=== PATIENT | female | born 1955 | race Hispanic/Latino ===

== ENCOUNTER 2020-05-16 10:20 | Inpatient (IN) | payer MEDICARE, OTHER ==
[~2020-05-16] VITALS: Ht 154.9 cm; Wt 136.1 kg
[2020-05-16] VITALS (7 sets, daily range): BP systolic 153–178; BP diastolic 63–89
[2020-05-16 11:37] LABS: ALBUMIN 3.5 g/dL (3.5-5.0); ALBUMIN/GLOBULIN RATIO 0.9 (0.8-2.0); ANION GAP 13.5 mmol/L (8-16); CALCIUM 8.4 mg/dL (8.4-10.2); CREATININE, SERUM 1.02 mg/dL (0.57-1.11); POTASSIUM 4.5 mmol/L (3.5-5.1)
[2020-05-16 11:37] LABS: BASOPHILS % 0.3 % (0.0-1.0); EOSINOPHILS # (AUTO) 0.1 (0.0-0.4); HEMATOCRIT 39.6 % (34.2-44.1); HEMOGLOBIN 12.6 g/dL (12.0-16.0); LYMPHOCYTES # (AUTO) 0.7 (1.0-3.2); LYMPHOCYTES % 10.8 % (18.0-39.1); MEAN CORPUSCULAR HEMOGLOBIN 28.1 pg (28-32); MEAN CORPUSCULAR HGB CONC 31.8 g/dL (31-35); MEAN CORPUSCULAR VOLUME 88.4 fL (81-99); MONOCYTES # (AUTO) 0.6 (0.2-0.8); NEUTROPHILS # (AUTO) 5.5 (2.1-6.9); NEUTROPHILS % 79.6 % (38.7-80.0); PLATELET COUNT 186 x10e3/uL (140-360); RED BLOOD COUNT 4.48 x10e6/uL (3.6-5.1); RED CELL DISTRIBUTION WIDTH 14.4 % (11.7-14.4)
[2020-05-16] MEDS ORDERED: FUROSEMIDE INJ 10 MG/ML 4 ML VIAL IV NR (12:30)
[2020-05-16] MEDS ORDERED: LOSARTAN POTASS25 MG PO (13:09)
[2020-05-16] MEDS ORDERED: CRESTOR5 MG PO (13:09)
[2020-05-16] MEDS ORDERED: FUROSEMIDE40 MG PO (13:09)
[2020-05-16] MEDS ORDERED: PROTONIX20 MG PO (13:09)
[2020-05-16] MEDS ORDERED: VENLAFAXINE HCL75 MG PO (13:09)
[2020-05-16] MEDS ORDERED: METOPROLOL TART50 MG PO (13:09)
[2020-05-16] MEDS ORDERED: LEVETIRACETAM500 MG PO (13:09)
[2020-05-16] MEDS ORDERED: CLOPIDOGREL75 MG PO (13:09)
[2020-05-16] MEDS ORDERED: HYDRALAZINE HCL 20 MG/ML VIAL IV PRN (14:45)
[2020-05-16] MEDS ORDERED: POTASSIUM CHLORIDE 20 MEQ TAB CR PO PRN (14:45)
[2020-05-16] MEDS ORDERED: TRAMADOL HCL 50 MG TAB PO PRN (14:45)
[2020-05-16] MEDS ORDERED: DEXTROSE 50% SYRINGE 50 ML IV PRN ×2 (14:45)
[2020-05-16] MEDS ORDERED: DIPHENHYDRAMINE HCL 25 MG CAP PO PRN (14:45)
[2020-05-16] MEDS ORDERED: BENZONATATE 100 MG CAP PO PRN (14:45)
[2020-05-16] MEDS ORDERED: ALBUTEROL/IPRATROPIUM 3 ML NEB NEB PRN (14:45)
[2020-05-16] MEDS ORDERED: ACETAMINOPHEN 325 MG TAB PO PRN (14:45)
[2020-05-16] MEDS ORDERED: ONDANSETRON HCL INJ 2MG/ML 2ML 2 MG/ML VIAL IV PRN (14:45)
[2020-05-16] MEDS ORDERED: POLYETHYLENE GLYCOL 3350 17 GM PACK PO PRN (14:45)
[2020-05-16] MEDS: FUROSEMIDE INJ 100 MG in SODIUM CHLORIDE 0.9% 100 ML 90 ML IV SCH (15:47)
[2020-05-16] MEDS ORDERED: ENOXAPARIN SOD INJ 40 MG/0.4 ML SYR SC SCH (17:00)
[2020-05-16 20:12] LABS: CREATINE KINASE MB 2.5 ng/mL (0-5.0)
[2020-05-16] MEDS ORDERED: MELATONIN 5 MG TABLET PO PRN (21:00)
[2020-05-17] VITALS (8 sets, daily range): BP systolic 133–166; BP diastolic 62–81
[2020-05-17] MEDS: FUROSEMIDE INJ 100 MG in SODIUM CHLORIDE 0.9% 100 ML 90 ML IV SCH ×3 (01:15→22:19)
[2020-05-17 05:29] LABS: BASOPHILS % 0.3 % (0.0-1.0); EOSINOPHILS # (AUTO) 0.1 (0.0-0.4); EOSINOPHILS % 1.4 % (0.0-6.0); HEMATOCRIT 40.7 % (34.2-44.1); HEMOGLOBIN 12.6 g/dL (12.0-16.0); LYMPHOCYTES # (AUTO) 0.9 (1.0-3.2); LYMPHOCYTES % 14.8 % (18.0-39.1); MEAN CORPUSCULAR HEMOGLOBIN 28.1 pg (28-32); MEAN CORPUSCULAR VOLUME 90.6 fL (81-99); MONOCYTES # (AUTO) 0.6 (0.2-0.8); MONOCYTES % 9.8 % (4.4-11.3); NEUTROPHILS # (AUTO) 4.6 (2.1-6.9); NEUTROPHILS % 73.5 % (38.7-80.0); PLATELET COUNT 101 x10e3/uL (140-360); RED BLOOD COUNT 4.49 x10e6/uL (3.6-5.1); RED CELL DISTRIBUTION WIDTH 14.8 % (11.7-14.4)
[2020-05-17 05:53] LABS: ALBUMIN 3.3 g/dL (3.5-5.0); ALBUMIN/GLOBULIN RATIO 0.8 (0.8-2.0); ANION GAP 17.3 mmol/L (8-16); CALCIUM 8.5 mg/dL (8.4-10.2); CREATININE, SERUM 1.11 mg/dL (0.57-1.11); POTASSIUM 4.3 mmol/L (3.5-5.1)
[2020-05-17 05:54] LABS: MAGNESIUM 1.4 MG/DL (1.3-2.1); PHOSPHORUS 3.8 MG/DL (2.3-4.7)
[2020-05-17 06:14] LABS: CREATINE KINASE MB 1.9 ng/mL (0-5.0)
[2020-05-17 06:17] LABS: THYROID STIMULATING HORMONE 2.341 uIU/mL (0.350-4.940)
[2020-05-17] MEDS: PANTOPRAZOLE SOD 40 MG TABEC PO SCH (08:30)
[2020-05-17 08:35] LABS: EOSINOPHILS % (MANUAL) 1 % (0-7); LYMPHOCYTES % (MANUAL) 9 % (19-48); MONOCYTES % (MANUAL) 7 % (3.4-9.0); NEUTROPHILS % (MANUAL) 83 % (40-74)
[2020-05-17] MEDS: LOSARTAN POTASSIUM 25 MG TAB PO SCH (09:00)
[2020-05-17] MEDS: LEVETIRACETAM 500 MG TAB PO SCH (09:00)
[2020-05-17] MEDS: CLOPIDOGREL BISULFATE 75 MG TAB PO SCH (09:00)
[2020-05-17] MEDS ORDERED: PANTOPRAZOLE SOD 40 MG TABEC PO SCH (09:00)
[2020-05-17] MEDS: VENLAFAXINE HCL 75 MG TAB PO SCH (09:00)
[2020-05-17] MEDS ORDERED: ENOXAPARIN SOD INJ 40 MG/0.4 ML SYR SC SCH (10:30)
[2020-05-17] MEDS ORDERED: CARVEDILOL 12.5 MG TAB PO SCH (17:00)
[2020-05-17] MEDS ORDERED: MAGNESIUM SULFATE 2GM/50ML 50 ML IV ONE (20:30)
[2020-05-17] MEDS ORDERED: LISINOPRIL 10 MG TAB PO SCH (21:00)
[2020-05-17] MEDS ORDERED: ENOXAPARIN 30 MG/0.3 ML SYR SC SCH (21:00)
[2020-05-17] MEDS ORDERED: INSULIN GLARGINE 100 UNITS/ML VIAL SQ SCH (21:00)
[2020-05-17] MEDS: INSULIN LISPRO 100 UNIT/1 ML 3ML VIAL SQ SCH (21:22)
[2020-05-17] MEDS: CARVEDILOL 12.5 MG TAB PO SCH (21:29)
[2020-05-17] MEDS: CRESTOR 10MG PO SCH (21:29)
[2020-05-17] MEDS: BALSAM PERU/CASTOR OIL 60 GM OINT...G. TP SCH (21:31)
[2020-05-18] VITALS (8 sets, daily range): BP systolic 109–164; BP diastolic 44–82
[2020-05-18 05:43] LABS: BASOPHILS % 0.3 % (0.0-1.0); EOSINOPHILS # (AUTO) 0.1 (0.0-0.4); HEMATOCRIT 38.4 % (34.2-44.1); LYMPHOCYTES # (AUTO) 0.9 (1.0-3.2); LYMPHOCYTES % 15.4 % (18.0-39.1); MEAN CORPUSCULAR HEMOGLOBIN 28.1 pg (28-32); MEAN CORPUSCULAR HGB CONC 31.3 g/dL (31-35); MEAN CORPUSCULAR VOLUME 89.9 fL (81-99); MONOCYTES # (AUTO) 0.8 (0.2-0.8); MONOCYTES % 12.7 % (4.4-11.3); NEUTROPHILS # (AUTO) 4.1 (2.1-6.9); NEUTROPHILS % 69.3 % (38.7-80.0); PLATELET COUNT 147 x10e3/uL (140-360); RED BLOOD COUNT 4.27 x10e6/uL (3.6-5.1); RED CELL DISTRIBUTION WIDTH 14.6 % (11.7-14.4)
[2020-05-18 06:07] LABS: ANION GAP 14.6 mmol/L (8-16); BLOOD UREA NITROGEN 16 mg/dL (7-26); BUN/CREATININE RATIO 17 (6-25); CALCIUM 8.2 mg/dL (8.4-10.2); CARBON DIOXIDE 28 mmol/L (22-29); CHLORIDE 99 mmol/L (98-107); CREATININE, SERUM 0.92 mg/dL (0.57-1.11); EST GLOMERULAR FILTRATION RATE > 60 ML/MIN (60-); GLUCOSE 247 mg/dL (74-118); MAGNESIUM 1.6 MG/DL (1.3-2.1); POTASSIUM 3.6 mmol/L (3.5-5.1); SODIUM 138 mmol/L (136-145)
[2020-05-18] MEDS ORDERED: MAGNESIUM SULFATE 2GM/50ML 50 ML IV ONE (08:30)
[2020-05-18] MEDS ORDERED: POTASSIUM CHLORIDE 20 MEQ TAB CR PO ONE (08:40)
[2020-05-18] MEDS: PANTOPRAZOLE SOD 40 MG TABEC PO SCH (08:57)
[2020-05-18] MEDS: ASPIRIN 81 MG ENTERIC COATED PO SCH (08:58)
[2020-05-18] MEDS: INSULIN LISPRO 100 UNIT/1 ML 3ML VIAL SQ SCH ×5 (08:58→20:57)
[2020-05-18] MEDS: CARVEDILOL 12.5 MG TAB PO SCH (08:59)
[2020-05-18] MEDS: VENLAFAXINE HCL 75 MG TAB PO SCH (08:59)
[2020-05-18] MEDS ORDERED: INSULIN GLARGINE 100 UNITS/ML VIAL SQ SCH (09:00)
[2020-05-18] MEDS: LOSARTAN POTASSIUM 25 MG TAB PO SCH (09:00)
[2020-05-18] MEDS: LEVETIRACETAM 500 MG TAB PO SCH (09:00)
[2020-05-18] MEDS: CLOPIDOGREL BISULFATE 75 MG TAB PO SCH (09:00)
[2020-05-18] MEDS: ENOXAPARIN SOD INJ 40 MG/0.4 ML SYR SC SCH ×2 (09:00→20:50)
[2020-05-18] MEDS ORDERED: BALSAM PERU/CASTOR OIL 60 GM OINT...G. TP SCH (09:00)
[2020-05-18] MEDS: FUROSEMIDE INJ 100 MG in SODIUM CHLORIDE 0.9% 100 ML 90 ML IV SCH ×3 (09:06→20:26)
[2020-05-18] MEDS: BALSAM PERU/CASTOR OIL 60 GM OINT...G. TP SCH (20:26)
[2020-05-18] MEDS: CARVEDILOL 3.125 MG TAB PO SCH (20:50)
[2020-05-18] MEDS: CRESTOR 10MG PO SCH (20:50)
[2020-05-18] MEDS: INSULIN GLARGINE 100 UNITS/ML VIAL SQ SCH (20:57)
[2020-05-19] VITALS (8 sets, daily range): BP systolic 106–145; BP diastolic 53–70
[2020-05-19 05:50] LABS: BASOPHILS % 0.4 % (0.0-1.0); EOSINOPHILS # (AUTO) 0.2 (0.0-0.4); HEMATOCRIT 35.3 % (34.2-44.1); HEMOGLOBIN 11.4 g/dL (12.0-16.0); LYMPHOCYTES # (AUTO) 0.9 (1.0-3.2); LYMPHOCYTES % 16.6 % (18.0-39.1); MEAN CORPUSCULAR HEMOGLOBIN 28.6 pg (28-32); MEAN CORPUSCULAR HGB CONC 32.3 g/dL (31-35); MEAN CORPUSCULAR VOLUME 88.7 fL (81-99); MONOCYTES # (AUTO) 0.7 (0.2-0.8); MONOCYTES % 12.2 % (4.4-11.3); NEUTROPHILS # (AUTO) 3.8 (2.1-6.9); NEUTROPHILS % 67.6 % (38.7-80.0); PLATELET COUNT 189 x10e3/uL (140-360); RED BLOOD COUNT 3.98 x10e6/uL (3.6-5.1); RED CELL DISTRIBUTION WIDTH 14.3 % (11.7-14.4)
[2020-05-19 06:15] LABS: ANION GAP 13.5 mmol/L (8-16); CALCIUM 8.1 mg/dL (8.4-10.2); MAGNESIUM 1.6 MG/DL (1.3-2.1); POTASSIUM 3.5 mmol/L (3.5-5.1)
[2020-05-19] MEDS: FUROSEMIDE INJ 100 MG in SODIUM CHLORIDE 0.9% 100 ML 90 ML IV SCH (06:28)
[2020-05-19] MEDS: INSULIN LISPRO 100 UNIT/1 ML 3ML VIAL SQ SCH ×4 (07:30→21:14)
[2020-05-19] MEDS: PANTOPRAZOLE SOD 40 MG TABEC PO SCH (09:15)
[2020-05-19] MEDS: CLOPIDOGREL BISULFATE 75 MG TAB PO SCH (09:15)
[2020-05-19] MEDS: ASPIRIN 81 MG ENTERIC COATED PO SCH (09:15)
[2020-05-19] MEDS: ENOXAPARIN SOD INJ 40 MG/0.4 ML SYR SC SCH ×2 (09:15→21:08)
[2020-05-19] MEDS: LEVETIRACETAM 500 MG TAB PO SCH (09:15)
[2020-05-19] MEDS: VENLAFAXINE HCL 75 MG TAB PO SCH (09:15)
[2020-05-19] MEDS: LOSARTAN POTASSIUM 25 MG TAB PO SCH (09:18)
[2020-05-19] MEDS: CARVEDILOL 3.125 MG TAB PO SCH ×2 (09:18→21:08)
[2020-05-19] MEDS ORDERED: MAGNESIUM SULFATE 2GM/50ML 50 ML IV ONE (09:30)
[2020-05-19] MEDS ORDERED: ONDANSETRON HCL 4 MG ORAL DISINTEGRATING TAB PO PRN (09:45)
[2020-05-19] MEDS ORDERED: POTASSIUM CHLORIDE 10MEQ EA PO ONE (09:50)
[2020-05-19] MEDS: INSULIN GLARGINE 100 UNITS/ML VIAL SQ SCH ×2 (09:56→21:14)
[2020-05-19] MEDS: CRESTOR 10MG PO SCH (21:08)
[2020-05-19] MEDS: FUROSEMIDE INJ 10 MG/ML 4 ML VIAL IV SCH (21:08)
[2020-05-19] MEDS: BALSAM PERU/CASTOR OIL 60 GM OINT...G. TP SCH (21:09)
[2020-05-20] VITALS (8 sets, daily range): BP systolic 119–144; BP diastolic 62–77
[2020-05-20 05:35] LABS: BASOPHILS % 0.4 % (0.0-1.0); EOSINOPHILS # (AUTO) 0.2 (0.0-0.4); EOSINOPHILS % 3.1 % (0.0-6.0); HEMATOCRIT 36.4 % (34.2-44.1); HEMOGLOBIN 11.5 g/dL (12.0-16.0); LYMPHOCYTES # (AUTO) 1.1 (1.0-3.2); LYMPHOCYTES % 20.1 % (18.0-39.1); MEAN CORPUSCULAR HEMOGLOBIN 27.8 pg (28-32); MEAN CORPUSCULAR HGB CONC 31.6 g/dL (31-35); MEAN CORPUSCULAR VOLUME 87.9 fL (81-99); MONOCYTES # (AUTO) 0.6 (0.2-0.8); MONOCYTES % 11.6 % (4.4-11.3); NEUTROPHILS # (AUTO) 3.6 (2.1-6.9); NEUTROPHILS % 64.6 % (38.7-80.0); PLATELET COUNT 205 x10e3/uL (140-360); RED BLOOD COUNT 4.14 x10e6/uL (3.6-5.1); RED CELL DISTRIBUTION WIDTH 14.6 % (11.7-14.4)
[2020-05-20 05:59] LABS: ANION GAP 13.8 mmol/L (8-16); CALCIUM 8.4 mg/dL (8.4-10.2); MAGNESIUM 1.9 MG/DL (1.3-2.1); POTASSIUM 3.8 mmol/L (3.5-5.1)
[2020-05-20] MEDS: INSULIN LISPRO 100 UNIT/1 ML 3ML VIAL SQ SCH ×4 (07:30→20:33)
[2020-05-20] MEDS: INSULIN GLARGINE 100 UNITS/ML VIAL SQ SCH ×2 (09:00→20:33)
[2020-05-20] MEDS ORDERED: POTASSIUM CHLORIDE 20 MEQ TAB CR PO STA (09:00)
[2020-05-20] MEDS: ASPIRIN 81 MG ENTERIC COATED PO SCH (09:09)
[2020-05-20] MEDS: FUROSEMIDE INJ 10 MG/ML 4 ML VIAL IV SCH ×2 (09:09→20:32)
[2020-05-20] MEDS: PANTOPRAZOLE SOD 40 MG TABEC PO SCH (09:09)
[2020-05-20] MEDS: LOSARTAN POTASSIUM 25 MG TAB PO SCH (09:10)
[2020-05-20] MEDS: VENLAFAXINE HCL 75 MG TAB PO SCH (09:10)
[2020-05-20] MEDS: CARVEDILOL 3.125 MG TAB PO SCH ×2 (09:10→20:32)
[2020-05-20] MEDS: CLOPIDOGREL BISULFATE 75 MG TAB PO SCH (09:11)
[2020-05-20] MEDS: ENOXAPARIN SOD INJ 40 MG/0.4 ML SYR SC SCH ×2 (09:11→20:32)
[2020-05-20] MEDS: LEVETIRACETAM 500 MG TAB PO SCH (09:11)
[2020-05-20] MEDS: CRESTOR 10MG PO SCH (20:32)
[2020-05-20] MEDS: BALSAM PERU/CASTOR OIL 60 GM OINT...G. TP SCH (20:33)
[2020-05-21 00:48] VITALS: BP 136/75
[2020-05-21 04:07] VITALS: BP 121/67
[2020-05-21 06:23] LABS: BASOPHILS % 0.3 % (0.0-1.0); EOSINOPHILS # (AUTO) 0.2 (0.0-0.4); EOSINOPHILS % 2.4 % (0.0-6.0); HEMOGLOBIN 11.8 g/dL (12.0-16.0); LYMPHOCYTES # (AUTO) 0.9 (1.0-3.2); LYMPHOCYTES % 14.9 % (18.0-39.1); MEAN CORPUSCULAR HGB CONC 31.9 g/dL (31-35); MEAN CORPUSCULAR VOLUME 87.7 fL (81-99); MONOCYTES # (AUTO) 0.8 (0.2-0.8); MONOCYTES % 12.3 % (4.4-11.3); NEUTROPHILS # (AUTO) 4.4 (2.1-6.9); NEUTROPHILS % 69.8 % (38.7-80.0); PLATELET COUNT 204 x10e3/uL (140-360); RED BLOOD COUNT 4.22 x10e6/uL (3.6-5.1); RED CELL DISTRIBUTION WIDTH 14.4 % (11.7-14.4)
[2020-05-21 07:11] LABS: ANION GAP 11.6 mmol/L (8-16); CALCIUM 8.5 mg/dL (8.4-10.2); CREATININE, SERUM 0.95 mg/dL (0.57-1.11); MAGNESIUM 1.8 MG/DL (1.3-2.1); POTASSIUM 3.6 mmol/L (3.5-5.1)
[2020-05-21] MEDS: INSULIN LISPRO 100 UNIT/1 ML 3ML VIAL SQ SCH ×3 (07:30→16:30)
[2020-05-21] MEDS: INSULIN GLARGINE 100 UNITS/ML VIAL SQ SCH (08:46)
[2020-05-21] MEDS: ASPIRIN 81 MG ENTERIC COATED PO SCH (08:47)
[2020-05-21] MEDS: PANTOPRAZOLE SOD 40 MG TABEC PO SCH (08:47)
[2020-05-21] MEDS: FUROSEMIDE INJ 10 MG/ML 4 ML VIAL IV SCH (08:47)
[2020-05-21] MEDS: ENOXAPARIN SOD INJ 40 MG/0.4 ML SYR SC SCH (08:48)
[2020-05-21] MEDS: CLOPIDOGREL BISULFATE 75 MG TAB PO SCH (08:48)
[2020-05-21] MEDS: CARVEDILOL 3.125 MG TAB PO SCH (08:48)
[2020-05-21] MEDS: LEVETIRACETAM 500 MG TAB PO SCH (08:48)
[2020-05-21] MEDS: LOSARTAN POTASSIUM 25 MG TAB PO SCH (08:48)
[2020-05-21] MEDS: VENLAFAXINE HCL 75 MG TAB PO SCH (08:48)
[2020-05-21 08:56] VITALS: BP 134/75
[2020-05-21 09:34] VITALS: BP 134/75
[2020-05-21 12:01] VITALS: BP 148/60
[2020-05-21] MEDS ORDERED: COREG3.125 MG PO (14:18)
[2020-05-21] MEDS ORDERED: FUROSEMIDE40 MG PO (14:18)
[2020-05-21] MEDS ORDERED: ASPIRIN81 MG PO (14:18)
[2020-05-21] MEDS ORDERED: LOSARTAN POTASS25 MG PO (14:18)
[2020-05-21 16:06] VITALS: BP 163/93
== END 2020-05-21 17:45 | disposition home or self-care (01) | DRG 292 ==
LOC: ER 11:22 → ERHOLD 12:27 → MED/SURG 14:13 → OBSVTOIN 05-17 15:48
PROVIDERS: ADMIT Internal Medicine; ATTEND Internal Medicine
DX: I11.0 Hypertensive heart disease with heart failure (principal); Z68.44 Body mass index [BMI] 60.0-69.9, adult; I50.33 Acute on chronic diastolic (congestive) heart failure; D69.6 Thrombocytopenia, unspecified; E11.65 Type 2 diabetes mellitus with hyperglycemia; Z85.038 Personal history of other malignant neoplasm of large intestine; I25.2 Old myocardial infarction; Z90.49 Acquired absence of other specified parts of digestive tract; Z98.61 Coronary angioplasty status; Z88.8 Allergy status to other drugs, medicaments and biological substances; E66.01 Morbid (severe) obesity due to excess calories; Z91.19 Patient's noncompliance with other medical treatment and regimen; G40.909 Epilepsy, unspecified, not intractable, without status epilepticus; Z20.822 Contact with and (suspected) exposure to COVID-19; I25.10 Atherosclerotic heart disease of native coronary artery without angina pectoris; E78.5 Hyperlipidemia, unspecified; Z79.4 Long term (current) use of insulin
CPT/HCPCS: 36415; 71045; 80048; 80053; 82550; 82553; 82948; 83036; 83735; 83880; 84100; 84443; 84484; 85025; 93005; 93306; 93970; 94660; 96372; 97139; 99251; 99284; G0378; J1650; J1815; J1940; J3475; U0002

== ENCOUNTER 2020-06-04 22:35 | Inpatient (IN) | payer MEDICARE ==
[~2020-06-04] VITALS: Ht 154.9 cm; Wt 131.7 kg
[~2020-06-04 22:35] MED LIST: ASPIRIN81 MG PO; CLOPIDOGREL75 MG PO; COREG3.125 MG PO; CRESTOR5 MG PO; FUROSEMIDE40 MG PO; LEVETIRACETAM500 MG PO; LOSARTAN POTASS25 MG PO; METOPROLOL TART50 MG PO; PROTONIX20 MG PO; VENLAFAXINE HCL75 MG PO
[2020-06-04] MEDS ORDERED: ASPIRIN 81 MG CHEW TAB PO ONE (22:45)
[2020-06-04] MEDS ORDERED: NALOXONE HCL INJ 0.4 MG/ML AMP IV PRN (23:15)
[2020-06-04] MEDS ORDERED: NALOXONE HCL INJ 0.4 MG/ML AMP ONE ×2 (23:35→23:43)
[2020-06-05] VITALS (20 sets, daily range): BP systolic 80–127; BP diastolic 37–95
[2020-06-05] MEDS ORDERED: ASPIRIN 81 MG CHEW TAB PO ONE (02:00)
[2020-06-05] MEDS ORDERED: IBUPROFEN 600 MG TAB PO STA (03:24)
[2020-06-05 03:32] LABS: BASOPHILS # (AUTO) 0.1 (0.0-0.1); BASOPHILS % 0.5 % (0.0-1.0); EOSINOPHILS # (AUTO) 0.1 (0.0-0.4); EOSINOPHILS % 0.3 % (0.0-6.0); HEMATOCRIT 35.7 % (34.2-44.1); HEMOGLOBIN 11.5 g/dL (12.0-16.0); LYMPHOCYTES # (AUTO) 0.4 (1.0-3.2); LYMPHOCYTES % 1.8 % (18.0-39.1); MEAN CORPUSCULAR HEMOGLOBIN 27.6 pg (28-32); MEAN CORPUSCULAR HGB CONC 32.2 g/dL (31-35); MEAN CORPUSCULAR VOLUME 85.8 fL (81-99); MONOCYTES # (AUTO) 0.6 (0.2-0.8); NEUTROPHILS # (AUTO) 19.7 (2.1-6.9); PLATELET COUNT 283 x10e3/uL (140-360); RED BLOOD COUNT 4.16 x10e6/uL (3.6-5.1); RED CELL DISTRIBUTION WIDTH 15.9 % (11.7-14.4)
[2020-06-05] MEDS ORDERED: CEFTRIAXONE SOD 1 GM VIAL ONE (03:47)
[2020-06-05 03:51] LABS: ALBUMIN 2.3 g/dL (3.5-5.0); ALBUMIN/GLOBULIN RATIO 0.5 (0.8-2.0); ANION GAP 23.2 mmol/L (8-16); CALCIUM 8.7 mg/dL (8.4-10.2); CREATININE, SERUM 5.18 mg/dL (0.57-1.11); POTASSIUM 4.2 mmol/L (3.5-5.1)
[2020-06-05 03:56] LABS: AMPHETAMINES SCREEN,URINE NEGATIVE (NEGATIVE); BENZODIAZEPINES SCREEN,URINE NEGATIVE (NEGATIVE); CLARITY,URINE CLOUDY (CLEAR); COLOR,URINE AMBER (YELLOW); PHENCYCLIDINE SCREEN,URINE NEGATIVE (NEGATIVE)
[2020-06-05 03:57] LABS: KETONES,URINE TRACE (NEGATIVE); LEUKOCYTE ESTERASE ,URINE 2+ (NEGATIVE); NITRITE,URINE NEGATIVE (NEGATIVE); PROTEIN,URINE DIPSTICK 3+ (NEGATIVE); URINE UROBILINOGEN 2 mg/dL (0.2 - 1); WBC,URINE (MAN) >50 /HPF (0-5)
[2020-06-05 03:58] LABS: BACTERIA,URINE MANY /HPF; EPITHELIAL CELLS,URINE FEW /LPF
[2020-06-05] MEDS ORDERED: CEFTRIAXONE SOD 1 GM/50 ML BAG IV ONE (04:00)
[2020-06-05] MEDS ORDERED: SODIUM CHLORIDE 0.9% 500ML 500 ML IV ONE ×2 (04:15→05:15)
[2020-06-05] MEDS ORDERED: CEFTRIAXONE SOD 1 GM in SODIUM CHLORIDE 0.9% 50ML 50 ML IV ONE (04:15)
[2020-06-05] MEDS ORDERED: SODIUM CHLORIDE 0.9% 500ML 500 ML ONE (04:16)
[2020-06-05] MEDS ORDERED: SODIUM BICARBONATE 8.4% INJ 50 ML SYR IV STA (04:39)
[2020-06-05] MEDS ORDERED: FUROSEMIDE INJ 10 MG/ML 4 ML VIAL IV ONE (05:15)
[2020-06-05] MEDS ORDERED: VANCOMYCIN 1GM/NS 250 ML 250 ML IV ONE (06:30)
[2020-06-05 06:32] LABS: CREATINE KINASE MB 7.4 ng/mL (0-5.0)
[2020-06-05] MEDS ORDERED: SODIUM CHLORIDE 0.9% 1000ML 1,000 ML IV STA (06:43)
[2020-06-05 06:44] LABS: ANISOCYTOSIS SLIGHT; BAND NEUTROPHILS % (MANUAL) 3 %; LYMPHOCYTES % (MANUAL) 2 % (19-48); MONOCYTES % (MANUAL) 6 % (3.4-9.0); NEUTROPHILS % (MANUAL) 89 % (40-74); PLATELET ESTIMATE ADEQUATE
[2020-06-05 06:45] LABS: PLATELET MORPHOLOGY COMMENT RARE EDTA CLUMPING; RBC MORPHOLOGY COMMENT NORMAL
[2020-06-05] MEDS ORDERED: NOREPINEPHRINE INJ 4MG/4ML 8 MG in DEXTROSE 5% 250ML 250 ML IV STA (07:05)
[2020-06-05] MEDS ORDERED: NOREPINEPHRINE 8 MG/D5W 250 ML 250 ML ONE (08:31)
[2020-06-05] MEDS: PIPERACILLIN/TAZOBAC 3.375 GM in SODIUM CHLORIDE 0.9% 50ML 50 ML IV SCH ×2 (08:35→19:25)
[2020-06-05] MEDS: LEVETIRACETAM 500 MG TAB PO SCH (10:30)
[2020-06-05] MEDS: CLOPIDOGREL BISULFATE 75 MG TAB PO SCH (10:30)
[2020-06-05 11:09] LABS: CREATINE KINASE MB 6.4 ng/mL (0-5.0)
[2020-06-05 11:28] LABS: INR 1.19; PROTHROMBIN TIME 15.8 seconds (11.9-14.5)
[2020-06-05 11:29] LABS: PARTIAL THROMBOPLASTIN TIME 42.1 seconds (23.8-35.5)
[2020-06-05] MEDS ORDERED: SODIUM CHLORIDE 0.9% 1000ML 1,000 ML IV ONE (11:35)
[2020-06-05] MEDS: SODIUM BICARBONATE 8.4% SYRING 150 ML in DEXTROSE 5% 1,000 ML IV SCH (11:45)
[2020-06-05] MEDS: INSULIN REGULAR, HUMAN 100 UNIT/1 ML 3ML VIAL SQ SCH ×2 (16:30→20:24)
[2020-06-05] MEDS ORDERED: DEXTROSE 50% SYRINGE 50 ML IV PRN (16:30)
[2020-06-05] MEDS: CARVEDILOL 3.125 MG TAB PO SCH (17:00)
[2020-06-05] MEDS ORDERED: HEPARIN SOD (PORCINE) 1000 UNIT/ML SDV IV PRN (17:45)
[2020-06-05] MEDS ORDERED: SODIUM CHLORIDE 0.9% 1000ML 2,000 ML IV PRN (17:45)
[2020-06-05] MEDS ORDERED: ALBUMIN 25% 12.5GM 0.25 GM/ML BTL IV PRN (17:45)
[2020-06-05] MEDS ORDERED: SODIUM CHLORIDE 0.9% 250ML 500 ML IV PRN (17:45)
[2020-06-05 17:54] LABS: CREATINE KINASE MB 5.4 ng/mL (0-5.0)
[2020-06-05] MEDS ORDERED: PIPERACILLIN/TAZOBAC 3.375 GM VIAL ONE (19:27)
[2020-06-05] MEDS ORDERED: SODIUM CHLORIDE 0.9% 50ML 50 ML ONE (19:28)
[2020-06-05] MEDS: HEPARIN SOD (PORCINE) 5,000 UNIT/ML VIAL SC SCH (20:18)
[2020-06-06] VITALS (29 sets, daily range): BP systolic 92–137; BP diastolic 40–98
[2020-06-06] MEDS: SODIUM BICARBONATE 8.4% SYRING 150 ML in DEXTROSE 5% 1,000 ML IV SCH ×3 (00:58→22:55)
[2020-06-06 04:51] LABS: BASOPHILS # (AUTO) 0.1 (0.0-0.1); BASOPHILS % 0.6 % (0.0-1.0); EOSINOPHILS # (AUTO) 0.1 (0.0-0.4); EOSINOPHILS % 0.2 % (0.0-6.0); HEMATOCRIT 31.3 % (34.2-44.1); HEMOGLOBIN 10.2 g/dL (12.0-16.0); LYMPHOCYTES # (AUTO) 0.6 (1.0-3.2); MEAN CORPUSCULAR HEMOGLOBIN 27.2 pg (28-32); MEAN CORPUSCULAR HGB CONC 32.6 g/dL (31-35); MEAN CORPUSCULAR VOLUME 83.5 fL (81-99); MONOCYTES # (AUTO) 0.8 (0.2-0.8); MONOCYTES % 3.9 % (4.4-11.3); NEUTROPHILS # (AUTO) 19.6 (2.1-6.9); NEUTROPHILS % 91.2 % (38.7-80.0); PLATELET COUNT 230 x10e3/uL (140-360); RED BLOOD COUNT 3.75 x10e6/uL (3.6-5.1); RED CELL DISTRIBUTION WIDTH 15.9 % (11.7-14.4)
[2020-06-06 05:15] LABS: ALBUMIN 1.9 g/dL (3.5-5.0); ALBUMIN/GLOBULIN RATIO 0.4 (0.8-2.0); ANION GAP 17.2 mmol/L (8-16); CALCIUM 8.2 mg/dL (8.4-10.2); CREATININE, SERUM 4.43 mg/dL (0.57-1.11); POTASSIUM 4.2 mmol/L (3.5-5.1)
[2020-06-06] MEDS ORDERED: NOREPINEPHRINE 8 MG/D5W 250 ML 250 ML IV PRN (05:45)
[2020-06-06] MEDS ORDERED: NOREPINEPHRINE 8 MG/D5W 250 ML 250 ML ONE (05:54)
[2020-06-06] MEDS: PIPERACILLIN/TAZOBAC 3.375 GM in SODIUM CHLORIDE 0.9% 50ML 50 ML IV SCH ×2 (06:30→18:01)
[2020-06-06] MEDS ORDERED: PIPERACILLIN/TAZOBAC 3.375 GM VIAL ONE ×2 (06:33→16:57)
[2020-06-06] MEDS ORDERED: SODIUM CHLORIDE 0.9% 50ML 50 ML ONE (06:34)
[2020-06-06] MEDS: INSULIN REGULAR, HUMAN 100 UNIT/1 ML 3ML VIAL SQ SCH ×4 (07:30→20:34)
[2020-06-06 08:41] LABS: EOSINOPHILS % (MANUAL) 1 % (0-7); LYMPHOCYTES % (MANUAL) 3 % (19-48); MONOCYTES % (MANUAL) 3 % (3.4-9.0); NEUTROPHILS % (MANUAL) 91 % (40-74)
[2020-06-06 08:45] LABS: SMUDGE CELLS FEW
[2020-06-06] MEDS: CARVEDILOL 3.125 MG TAB PO SCH (09:00)
[2020-06-06] MEDS: CLOPIDOGREL BISULFATE 75 MG TAB PO SCH (09:00)
[2020-06-06] MEDS: HEPARIN SOD (PORCINE) 5,000 UNIT/ML VIAL SC SCH ×2 (09:00→20:34)
[2020-06-06] MEDS: LEVETIRACETAM 500 MG TAB PO SCH (09:00)
[2020-06-06] MEDS ORDERED: MANNITOL 25% 12.5GM/50ML 50 ML ONE (10:14)
[2020-06-06] MEDS ORDERED: SODIUM CHLORIDE 0.9% 1000ML 2,000 ML ONE (10:14)
[2020-06-06] MEDS ORDERED: HEPARIN SOD (PORCINE) 1000 UNIT/ML SDV ONE (10:16)
[2020-06-06] MEDS ORDERED: PANTOPRAZOLE SOD 40 MG TABEC PO SCH (10:30)
[2020-06-06] MEDS ORDERED: FUROSEMIDE INJ 400 MG in MANNITOL 20% 500ML 500 ML IV SCH ×2 (10:45→16:15)
[2020-06-06] MEDS ORDERED: LEVETIRACETAM 500MG/5ML VIAL 500 MG in SODIUM CHLORIDE 0.9% 100 ML 100 ML IV SCH (15:00)
[2020-06-06] MEDS: LEVETIRACETAM 500MG/5ML VIAL 500 MG in SODIUM CHLORIDE 0.9% 100 ML 100 ML IV SCH (18:07)
[2020-06-06] MEDS ORDERED: VANCOMYCIN 1GM/NS 250 ML 250 ML IV ONE (19:30)
[2020-06-07] VITALS (24 sets, daily range): BP systolic 100–146; BP diastolic 29–93
[2020-06-07 04:27] LABS: BASOPHILS % 0.2 % (0.0-1.0); EOSINOPHILS # (AUTO) 0.1 (0.0-0.4); EOSINOPHILS % 0.3 % (0.0-6.0); HEMOGLOBIN 9.5 g/dL (12.0-16.0); LYMPHOCYTES # (AUTO) 0.7 (1.0-3.2); LYMPHOCYTES % 3.8 % (18.0-39.1); MEAN CORPUSCULAR HEMOGLOBIN 27.6 pg (28-32); MEAN CORPUSCULAR HGB CONC 32.8 g/dL (31-35); MEAN CORPUSCULAR VOLUME 84.3 fL (81-99); MONOCYTES # (AUTO) 0.7 (0.2-0.8); MONOCYTES % 3.9 % (4.4-11.3); NEUTROPHILS # (AUTO) 16.4 (2.1-6.9); NEUTROPHILS % 90.9 % (38.7-80.0); PLATELET COUNT 187 x10e3/uL (140-360); RED BLOOD COUNT 3.44 x10e6/uL (3.6-5.1); RED CELL DISTRIBUTION WIDTH 15.9 % (11.7-14.4)
[2020-06-07 04:45] LABS: ALBUMIN 1.8 g/dL (3.5-5.0); ALBUMIN/GLOBULIN RATIO 0.4 (0.8-2.0); CREATININE, SERUM 3.37 mg/dL (0.57-1.11)
[2020-06-07] MEDS ORDERED: PIPERACILLIN/TAZOBAC 3.375 GM VIAL ONE (05:18)
[2020-06-07] MEDS: LEVETIRACETAM 500MG/5ML VIAL 500 MG in SODIUM CHLORIDE 0.9% 100 ML 100 ML IV SCH ×2 (05:55→17:22)
[2020-06-07] MEDS: PIPERACILLIN/TAZOBAC 3.375 GM in SODIUM CHLORIDE 0.9% 50ML 50 ML IV SCH (06:36)
[2020-06-07 07:34] LABS: ANISOCYTOSIS SLIGHT; LYMPHOCYTES % (MANUAL) 5 % (19-48); MONOCYTES % (MANUAL) 3 % (3.4-9.0); NEUTROPHILS % (MANUAL) 90 % (40-74); PLATELET ESTIMATE ADEQUATE
[2020-06-07 07:35] LABS: PLATELET MORPHOLOGY COMMENT FEW LARGE; RBC MORPHOLOGY COMMENT NORMAL
[2020-06-07] MEDS: CLOPIDOGREL BISULFATE 75 MG TAB PO SCH (08:17)
[2020-06-07] MEDS: CARVEDILOL 3.125 MG TAB PO SCH (08:17)
[2020-06-07] MEDS: PANTOPRAZOLE 40 MG 10ML VIAL IV SCH (08:26)
[2020-06-07] MEDS: INSULIN REGULAR, HUMAN 100 UNIT/1 ML 3ML VIAL SQ SCH ×4 (08:28→20:47)
[2020-06-07] MEDS: HEPARIN SOD (PORCINE) 5,000 UNIT/ML VIAL SC SCH ×2 (08:28→20:47)
[2020-06-07] MEDS: FUROSEMIDE INJ 400 MG in MANNITOL 20% 500ML 500 ML IV SCH (16:34)
[2020-06-07] MEDS: PIPERACILLIN/TAZOBACTAM 2.25 GM in SODIUM CHLORIDE 0.9% 50ML 50 ML IV SCH (18:04)
[2020-06-08] VITALS (24 sets, daily range): BP systolic 93–181; BP diastolic 49–97
[2020-06-08] MEDS: PIPERACILLIN/TAZOBACTAM 2.25 GM in SODIUM CHLORIDE 0.9% 50ML 50 ML IV SCH ×4 (00:24→17:43)
[2020-06-08] MEDS: LEVETIRACETAM 500MG/5ML VIAL 500 MG in SODIUM CHLORIDE 0.9% 100 ML 100 ML IV SCH ×2 (05:49→17:52)
[2020-06-08 05:58] LABS: BASOPHILS % 0.2 % (0.0-1.0); EOSINOPHILS % 0.1 % (0.0-6.0); HEMATOCRIT 31.8 % (34.2-44.1); HEMOGLOBIN 10.1 g/dL (12.0-16.0); LYMPHOCYTES # (AUTO) 0.7 (1.0-3.2); LYMPHOCYTES % 3.1 % (18.0-39.1); MEAN CORPUSCULAR HEMOGLOBIN 27.1 pg (28-32); MEAN CORPUSCULAR HGB CONC 31.8 g/dL (31-35); MEAN CORPUSCULAR VOLUME 85.3 fL (81-99); MONOCYTES # (AUTO) 0.7 (0.2-0.8); MONOCYTES % 3.1 % (4.4-11.3); NEUTROPHILS # (AUTO) 20.6 (2.1-6.9); NEUTROPHILS % 92.5 % (38.7-80.0); PLATELET COUNT 171 x10e3/uL (140-360); RED BLOOD COUNT 3.73 x10e6/uL (3.6-5.1)
[2020-06-08 06:25] LABS: ALBUMIN 1.9 g/dL (3.5-5.0); ALBUMIN/GLOBULIN RATIO 0.4 (0.8-2.0); ANION GAP 14.8 mmol/L (8-16); CALCIUM 8.7 mg/dL (8.4-10.2); CREATININE, SERUM 2.56 mg/dL (0.57-1.11); POTASSIUM 3.8 mmol/L (3.5-5.1)
[2020-06-08] MEDS: INSULIN REGULAR, HUMAN 100 UNIT/1 ML 3ML VIAL SQ SCH ×4 (07:52→21:24)
[2020-06-08] MEDS: CLOPIDOGREL BISULFATE 75 MG TAB PO SCH (08:16)
[2020-06-08] MEDS: CARVEDILOL 3.125 MG TAB PO SCH (08:16)
[2020-06-08] MEDS: PANTOPRAZOLE 40 MG 10ML VIAL IV SCH (08:25)
[2020-06-08] MEDS: HEPARIN SOD (PORCINE) 5,000 UNIT/ML VIAL SC SCH ×2 (08:27→21:24)
[2020-06-08] MEDS: FUROSEMIDE INJ 400 MG in MANNITOL 20% 500ML 500 ML IV SCH (13:00)
[2020-06-08] MEDS: FUROSEMIDE INJ 10 MG/ML 4 ML VIAL IV SCH (21:23)
[2020-06-09] VITALS (14 sets, daily range): BP systolic 125–152; BP diastolic 50–92
[2020-06-09] MEDS: PIPERACILLIN/TAZOBACTAM 2.25 GM in SODIUM CHLORIDE 0.9% 50ML 50 ML IV SCH ×5 (05:21→17:26)
[2020-06-09] MEDS: LEVETIRACETAM 500MG/5ML VIAL 500 MG in SODIUM CHLORIDE 0.9% 100 ML 100 ML IV SCH ×2 (06:15→17:03)
[2020-06-09 07:18] LABS: ALBUMIN/GLOBULIN RATIO 0.4 (0.8-2.0); ANION GAP 17.4 mmol/L (8-16); CALCIUM 8.6 mg/dL (8.4-10.2); CREATININE, SERUM 2.56 mg/dL (0.57-1.11); POTASSIUM 3.4 mmol/L (3.5-5.1)
[2020-06-09] MEDS: INSULIN REGULAR, HUMAN 100 UNIT/1 ML 3ML VIAL SQ SCH ×4 (07:40→21:45)
[2020-06-09] MEDS: PANTOPRAZOLE 40 MG 10ML VIAL IV SCH (08:18)
[2020-06-09] MEDS: FUROSEMIDE INJ 10 MG/ML 4 ML VIAL IV SCH (08:18)
[2020-06-09] MEDS: CARVEDILOL 3.125 MG TAB PO SCH (08:21)
[2020-06-09] MEDS: CLOPIDOGREL BISULFATE 75 MG TAB PO SCH (08:21)
[2020-06-09] MEDS: HEPARIN SOD (PORCINE) 5,000 UNIT/ML VIAL SC SCH ×2 (08:22→21:45)
[2020-06-09] MEDS ORDERED: POTASSIUM CHLORIDE 20MEQ/100ML 100 ML IV ONE (09:45)
[2020-06-10] VITALS (20 sets, daily range): BP systolic 134–157; BP diastolic 60–110
[2020-06-10] MEDS: PIPERACILLIN/TAZOBACTAM 2.25 GM in SODIUM CHLORIDE 0.9% 50ML 50 ML IV SCH ×5 (00:12→23:15)
[2020-06-10 05:53] LABS: BASOPHILS % 0.2 % (0.0-1.0); EOSINOPHILS # (AUTO) 0.1 (0.0-0.4); EOSINOPHILS % 0.6 % (0.0-6.0); HEMATOCRIT 32.2 % (34.2-44.1); HEMOGLOBIN 10.3 g/dL (12.0-16.0); LYMPHOCYTES % 5.6 % (18.0-39.1); MEAN CORPUSCULAR VOLUME 84.5 fL (81-99); MONOCYTES # (AUTO) 0.8 (0.2-0.8); MONOCYTES % 4.5 % (4.4-11.3); NEUTROPHILS # (AUTO) 15.2 (2.1-6.9); NEUTROPHILS % 88.2 % (38.7-80.0); PLATELET COUNT 165 x10e3/uL (140-360); RED BLOOD COUNT 3.81 x10e6/uL (3.6-5.1); RED CELL DISTRIBUTION WIDTH 16.2 % (11.7-14.4)
[2020-06-10] MEDS: LEVETIRACETAM 500MG/5ML VIAL 500 MG in SODIUM CHLORIDE 0.9% 100 ML 100 ML IV SCH ×2 (06:04→17:21)
[2020-06-10 06:14] LABS: ALBUMIN/GLOBULIN RATIO 0.4 (0.8-2.0); ANION GAP 18.2 mmol/L (8-16); CALCIUM 8.2 mg/dL (8.4-10.2); CREATININE, SERUM 2.21 mg/dL (0.57-1.11); POTASSIUM 3.2 mmol/L (3.5-5.1)
[2020-06-10] MEDS: PANTOPRAZOLE 40 MG 10ML VIAL IV SCH (08:13)
[2020-06-10] MEDS: INSULIN REGULAR, HUMAN 100 UNIT/1 ML 3ML VIAL SQ SCH ×4 (08:13→20:19)
[2020-06-10] MEDS: HEPARIN SOD (PORCINE) 5,000 UNIT/ML VIAL SC SCH ×2 (08:14→20:18)
[2020-06-10] MEDS: CLOPIDOGREL BISULFATE 75 MG TAB PO SCH (08:14)
[2020-06-10] MEDS: CARVEDILOL 3.125 MG TAB PO SCH (08:14)
[2020-06-10] MEDS ORDERED: POTASSIUM CHLORIDE 10MEQ EA PO NR (09:30)
[2020-06-10] MEDS: FUROSEMIDE INJ 10 MG/ML 2 ML VIAL IV SCH (17:20)
[2020-06-10] MEDS ORDERED: INSULIN GLARGINE 100 UNITS/ML VIAL SQ SCH (21:00)
[2020-06-11] VITALS (16 sets, daily range): BP systolic 115–159; BP diastolic 51–86
[2020-06-11 03:40] LABS: BASOPHILS % 0.2 % (0.0-1.0); EOSINOPHILS # (AUTO) 0.1 (0.0-0.4); EOSINOPHILS % 0.8 % (0.0-6.0); HEMATOCRIT 32.7 % (34.2-44.1); HEMOGLOBIN 10.6 g/dL (12.0-16.0); LYMPHOCYTES % 7.9 % (18.0-39.1); MEAN CORPUSCULAR HEMOGLOBIN 27.4 pg (28-32); MEAN CORPUSCULAR HGB CONC 32.4 g/dL (31-35); MEAN CORPUSCULAR VOLUME 84.5 fL (81-99); MONOCYTES # (AUTO) 0.6 (0.2-0.8); MONOCYTES % 4.8 % (4.4-11.3); NEUTROPHILS # (AUTO) 11.1 (2.1-6.9); NEUTROPHILS % 85.6 % (38.7-80.0); PLATELET COUNT 153 x10e3/uL (140-360); RED BLOOD COUNT 3.87 x10e6/uL (3.6-5.1); RED CELL DISTRIBUTION WIDTH 16.3 % (11.7-14.4)
[2020-06-11 04:01] LABS: CALCIUM 7.9 mg/dL (8.4-10.2); CREATININE, SERUM 1.69 mg/dL (0.57-1.11)
[2020-06-11] MEDS: PIPERACILLIN/TAZOBACTAM 2.25 GM in SODIUM CHLORIDE 0.9% 50ML 50 ML IV SCH ×3 (06:21→17:57)
[2020-06-11] MEDS: LEVETIRACETAM 500MG/5ML VIAL 500 MG in SODIUM CHLORIDE 0.9% 100 ML 100 ML IV SCH ×2 (06:21→17:14)
[2020-06-11] MEDS: INSULIN REGULAR, HUMAN 100 UNIT/1 ML 3ML VIAL SQ SCH ×4 (08:11→21:37)
[2020-06-11] MEDS: HEPARIN SOD (PORCINE) 5,000 UNIT/ML VIAL SC SCH ×2 (08:17→21:36)
[2020-06-11] MEDS: FUROSEMIDE INJ 10 MG/ML 2 ML VIAL IV SCH ×2 (08:34→16:35)
[2020-06-11] MEDS: PANTOPRAZOLE 40 MG 10ML VIAL IV SCH (08:34)
[2020-06-11] MEDS: CLOPIDOGREL BISULFATE 75 MG TAB PO SCH (08:35)
[2020-06-11] MEDS: CARVEDILOL 3.125 MG TAB PO SCH (08:35)
[2020-06-11] MEDS ORDERED: LOPERAMIDE HCL 2 MG CAP PO ONE (10:15)
[2020-06-11] MEDS ORDERED: POTASSIUM CHLORIDE 10MEQ EA PO ONE (11:35)
[2020-06-11] MEDS ORDERED: SODIUM CHLORIDE 0.9% 250ML 250 ML ONE (16:38)
[2020-06-11] MEDS ORDERED: DEXTROSE 50% SYRINGE 50 ML IV PRN (17:30)
[2020-06-11] MEDS: INSULIN GLARGINE 100 UNITS/ML VIAL SQ SCH (21:36)
[2020-06-12] VITALS (21 sets, daily range): BP systolic 107–163; BP diastolic 52–100
[2020-06-12] MEDS: PIPERACILLIN/TAZOBACTAM 2.25 GM in SODIUM CHLORIDE 0.9% 50ML 50 ML IV SCH ×4 (00:59→18:06)
[2020-06-12] MEDS: LEVETIRACETAM 500MG/5ML VIAL 500 MG in SODIUM CHLORIDE 0.9% 100 ML 100 ML IV SCH ×2 (06:00→18:06)
[2020-06-12 07:13] LABS: BASOPHILS % 0.2 % (0.0-1.0); EOSINOPHILS # (AUTO) 0.2 (0.0-0.4); EOSINOPHILS % 1.1 % (0.0-6.0); HEMATOCRIT 30.7 % (34.2-44.1); LYMPHOCYTES # (AUTO) 1.1 (1.0-3.2); LYMPHOCYTES % 7.8 % (18.0-39.1); MEAN CORPUSCULAR HEMOGLOBIN 27.3 pg (28-32); MEAN CORPUSCULAR HGB CONC 32.6 g/dL (31-35); MEAN CORPUSCULAR VOLUME 83.9 fL (81-99); MONOCYTES # (AUTO) 0.7 (0.2-0.8); MONOCYTES % 5.4 % (4.4-11.3); NEUTROPHILS # (AUTO) 11.3 (2.1-6.9); NEUTROPHILS % 84.6 % (38.7-80.0); PLATELET COUNT 189 x10e3/uL (140-360); RED BLOOD COUNT 3.66 x10e6/uL (3.6-5.1); RED CELL DISTRIBUTION WIDTH 16.3 % (11.7-14.4)
[2020-06-12 07:24] LABS: ALBUMIN/GLOBULIN RATIO 0.4 (0.8-2.0); ANION GAP 10.9 mmol/L (8-16); CALCIUM 7.5 mg/dL (8.4-10.2); CREATININE, SERUM 1.24 mg/dL (0.57-1.11)
[2020-06-12 07:27] LABS: POTASSIUM 2.9 mmol/L (3.5-5.1)
[2020-06-12] MEDS: INSULIN REGULAR, HUMAN 100 UNIT/1 ML 3ML VIAL SQ SCH ×4 (08:13→21:59)
[2020-06-12] MEDS: CLOPIDOGREL BISULFATE 75 MG TAB PO SCH (08:44)
[2020-06-12] MEDS: CARVEDILOL 3.125 MG TAB PO SCH (08:44)
[2020-06-12] MEDS: PANTOPRAZOLE 40 MG 10ML VIAL IV SCH (08:44)
[2020-06-12] MEDS: FUROSEMIDE INJ 10 MG/ML 2 ML VIAL IV SCH ×2 (08:44→17:01)
[2020-06-12] MEDS: HEPARIN SOD (PORCINE) 5,000 UNIT/ML VIAL SC SCH (08:46)
[2020-06-12] MEDS ORDERED: POTASSIUM CHLORIDE 20 MEQ TAB CR PO ONE (09:45)
[2020-06-12] MEDS ORDERED: POTASSIUM CHLORIDE 20MEQ/100ML 100 ML IV ONE (09:45)
[2020-06-12] MEDS ORDERED: LOPERAMIDE HCL 2 MG CAP PO PRN (12:15)
[2020-06-12] MEDS: INSULIN GLARGINE 100 UNITS/ML VIAL SQ SCH (21:00)
[2020-06-13] VITALS (16 sets, daily range): BP systolic 110–159; BP diastolic 22–84
[2020-06-13] MEDS: PIPERACILLIN/TAZOBAC 3.375 GM in SODIUM CHLORIDE 0.9% 50ML 50 ML IV SCH ×4 (00:55→22:12)
[2020-06-13 05:08] LABS: BASOPHILS # (AUTO) 0.1 (0.0-0.1); BASOPHILS % 0.4 % (0.0-1.0); EOSINOPHILS # (AUTO) 0.2 (0.0-0.4); EOSINOPHILS % 1.6 % (0.0-6.0); HEMATOCRIT 30.3 % (34.2-44.1); HEMOGLOBIN 9.7 g/dL (12.0-16.0); LYMPHOCYTES # (AUTO) 1.3 (1.0-3.2); LYMPHOCYTES % 9.4 % (18.0-39.1); MEAN CORPUSCULAR HEMOGLOBIN 27.1 pg (28-32); MEAN CORPUSCULAR VOLUME 84.6 fL (81-99); MONOCYTES # (AUTO) 0.7 (0.2-0.8); MONOCYTES % 4.9 % (4.4-11.3); NEUTROPHILS # (AUTO) 11.1 (2.1-6.9); NEUTROPHILS % 83.1 % (38.7-80.0); PLATELET COUNT 238 x10e3/uL (140-360); RED BLOOD COUNT 3.58 x10e6/uL (3.6-5.1); RED CELL DISTRIBUTION WIDTH 16.4 % (11.7-14.4)
[2020-06-13 05:33] LABS: ALBUMIN 1.9 g/dL (3.5-5.0); ALBUMIN/GLOBULIN RATIO 0.4 (0.8-2.0); ANION GAP 15.2 mmol/L (8-16); CALCIUM 7.3 mg/dL (8.4-10.2); CREATININE, SERUM 1.13 mg/dL (0.57-1.11); POTASSIUM 3.2 mmol/L (3.5-5.1)
[2020-06-13] MEDS: LEVETIRACETAM 500MG/5ML VIAL 500 MG in SODIUM CHLORIDE 0.9% 100 ML 100 ML IV SCH ×2 (05:49→17:14)
[2020-06-13] MEDS: FUROSEMIDE INJ 10 MG/ML 2 ML VIAL IV SCH ×2 (08:20→16:43)
[2020-06-13] MEDS: PANTOPRAZOLE 40 MG 10ML VIAL IV SCH (08:20)
[2020-06-13] MEDS: CLOPIDOGREL BISULFATE 75 MG TAB PO SCH (08:21)
[2020-06-13] MEDS: CARVEDILOL 3.125 MG TAB PO SCH (08:21)
[2020-06-13] MEDS: INSULIN REGULAR, HUMAN 100 UNIT/1 ML 3ML VIAL SQ SCH ×4 (08:23→20:35)
[2020-06-13] MEDS ORDERED: POTASSIUM CHLORIDE 20 MEQ TAB CR PO ONE (09:10)
[2020-06-13] MEDS: INSULIN GLARGINE 100 UNITS/ML VIAL SQ SCH (20:35)
[2020-06-13] MEDS ORDERED: SODIUM CHLORIDE 0.9% 250ML 250 ML ONE (21:35)
[2020-06-13] MEDS ORDERED: PIPERACILLIN/TAZOBAC 3.375 GM VIAL ONE (21:35)
[2020-06-13] MEDS ORDERED: SODIUM CHLORIDE 0.9% 50ML 50 ML ONE (21:36)
[2020-06-14] VITALS (7 sets, daily range): BP systolic 106–137; BP diastolic 46–62
[2020-06-14] MEDS ORDERED: SODIUM CHLORIDE 0.9% 50ML 50 ML ONE ×3 (05:35→19:49)
[2020-06-14] MEDS ORDERED: PIPERACILLIN/TAZOBAC 3.375 GM VIAL ONE ×3 (05:35→19:50)
[2020-06-14] MEDS: PIPERACILLIN/TAZOBAC 3.375 GM in SODIUM CHLORIDE 0.9% 50ML 50 ML IV SCH ×3 (05:42→21:07)
[2020-06-14 06:20] LABS: BASOPHILS % 0.3 % (0.0-1.0); EOSINOPHILS # (AUTO) 0.2 (0.0-0.4); EOSINOPHILS % 1.4 % (0.0-6.0); HEMATOCRIT 31.2 % (34.2-44.1); HEMOGLOBIN 9.9 g/dL (12.0-16.0); LYMPHOCYTES # (AUTO) 1.3 (1.0-3.2); LYMPHOCYTES % 9.6 % (18.0-39.1); MEAN CORPUSCULAR HGB CONC 31.7 g/dL (31-35); MEAN CORPUSCULAR VOLUME 85.2 fL (81-99); MONOCYTES # (AUTO) 0.7 (0.2-0.8); MONOCYTES % 5.4 % (4.4-11.3); NEUTROPHILS % 82.6 % (38.7-80.0); PLATELET COUNT 257 x10e3/uL (140-360); RED BLOOD COUNT 3.66 x10e6/uL (3.6-5.1); RED CELL DISTRIBUTION WIDTH 16.9 % (11.7-14.4)
[2020-06-14] MEDS: LEVETIRACETAM 500MG/5ML VIAL 500 MG in SODIUM CHLORIDE 0.9% 100 ML 100 ML IV SCH (06:23)
[2020-06-14 06:44] LABS: ANION GAP 13.6 mmol/L (8-16); CALCIUM 7.5 mg/dL (8.4-10.2); CREATININE, SERUM 1.13 mg/dL (0.57-1.11); POTASSIUM 3.6 mmol/L (3.5-5.1)
[2020-06-14] MEDS: INSULIN REGULAR, HUMAN 100 UNIT/1 ML 3ML VIAL SQ SCH ×4 (07:30→21:10)
[2020-06-14] MEDS: FUROSEMIDE INJ 10 MG/ML 2 ML VIAL IV SCH (09:00)
[2020-06-14] MEDS: PANTOPRAZOLE 40 MG 10ML VIAL IV SCH (09:03)
[2020-06-14] MEDS: CLOPIDOGREL BISULFATE 75 MG TAB PO SCH (09:10)
[2020-06-14] MEDS: CARVEDILOL 3.125 MG TAB PO SCH (09:10)
[2020-06-14] MEDS ORDERED: FUROSEMIDE INJ 10 MG/ML 4 ML VIAL IV ONE (09:25)
[2020-06-14] MEDS: LEVETIRACETAM 500 MG TAB PO SCH (16:24)
[2020-06-14] MEDS: FUROSEMIDE INJ 10 MG/ML 4 ML VIAL IV SCH (16:25)
[2020-06-14] MEDS: HEPARIN SOD (PORCINE) 5,000 UNIT/ML VIAL SC SCH (21:09)
[2020-06-14] MEDS: INSULIN GLARGINE 100 UNITS/ML VIAL SQ SCH (21:10)
[2020-06-15] VITALS (8 sets, daily range): BP systolic 101–135; BP diastolic 34–60
[2020-06-15] MEDS: FUROSEMIDE INJ 10 MG/ML 4 ML VIAL IV SCH ×3 (00:20→08:58)
[2020-06-15] MEDS ORDERED: SODIUM CHLORIDE 0.9% 50ML 50 ML ONE ×3 (05:24→20:03)
[2020-06-15] MEDS ORDERED: PIPERACILLIN/TAZOBAC 3.375 GM VIAL ONE ×3 (05:24→20:03)
[2020-06-15] MEDS: PIPERACILLIN/TAZOBAC 3.375 GM in SODIUM CHLORIDE 0.9% 50ML 50 ML IV SCH ×3 (05:48→21:30)
[2020-06-15 07:11] LABS: ALBUMIN 1.9 g/dL (3.5-5.0); ALBUMIN/GLOBULIN RATIO 0.4 (0.8-2.0); ANION GAP 12.3 mmol/L (8-16); CALCIUM 7.6 mg/dL (8.4-10.2); CREATININE, SERUM 1.03 mg/dL (0.57-1.11); POTASSIUM 3.3 mmol/L (3.5-5.1)
[2020-06-15] MEDS: INSULIN REGULAR, HUMAN 100 UNIT/1 ML 3ML VIAL SQ SCH ×4 (08:56→21:32)
[2020-06-15] MEDS: PANTOPRAZOLE 40 MG 10ML VIAL IV SCH (08:56)
[2020-06-15] MEDS: CLOPIDOGREL BISULFATE 75 MG TAB PO SCH (08:57)
[2020-06-15] MEDS: CARVEDILOL 3.125 MG TAB PO SCH (08:57)
[2020-06-15] MEDS: LEVETIRACETAM 500 MG TAB PO SCH ×2 (08:57→16:14)
[2020-06-15] MEDS: HEPARIN SOD (PORCINE) 5,000 UNIT/ML VIAL SC SCH ×2 (08:58→21:31)
[2020-06-15] MEDS ORDERED: POTASSIUM CHLORIDE 20 MEQ TAB CR PO ONE (10:00)
[2020-06-15] MEDS: BUMETANIDE 1 MG TAB PO SCH (16:14)
[2020-06-15] MEDS: NYSTATIN/TRIAMCINOLONE 15 GM CR TOP SCH (21:02)
[2020-06-15] MEDS: INSULIN GLARGINE 100 UNITS/ML VIAL SQ SCH (21:32)
[2020-06-16 00:20] VITALS: BP 124/52
[2020-06-16 04:20] VITALS: BP 128/63
[2020-06-16] MEDS ORDERED: SODIUM CHLORIDE 0.9% 50ML 50 ML ONE ×2 (05:10→12:59)
[2020-06-16] MEDS ORDERED: PIPERACILLIN/TAZOBAC 3.375 GM VIAL ONE ×2 (05:10→12:59)
[2020-06-16] MEDS: PIPERACILLIN/TAZOBAC 3.375 GM in SODIUM CHLORIDE 0.9% 50ML 50 ML IV SCH ×2 (05:25→13:18)
[2020-06-16 06:18] LABS: BASOPHILS % 0.4 % (0.0-1.0); EOSINOPHILS # (AUTO) 0.2 (0.0-0.4); EOSINOPHILS % 1.7 % (0.0-6.0); LYMPHOCYTES % 9.3 % (18.0-39.1); MEAN CORPUSCULAR HGB CONC 32.1 g/dL (31-35); MEAN CORPUSCULAR VOLUME 84.1 fL (81-99); MONOCYTES # (AUTO) 0.8 (0.2-0.8); MONOCYTES % 7.6 % (4.4-11.3); NEUTROPHILS # (AUTO) 8.7 (2.1-6.9); NEUTROPHILS % 80.5 % (38.7-80.0); PLATELET COUNT 361 x10e3/uL (140-360); RED BLOOD COUNT 3.33 x10e6/uL (3.6-5.1); RED CELL DISTRIBUTION WIDTH 17.4 % (11.7-14.4)
[2020-06-16] MEDS: NYSTATIN/TRIAMCINOLONE 15 GM CR TOP SCH ×2 (06:32→12:00)
[2020-06-16 06:56] LABS: ANION GAP 13.8 mmol/L (8-16); CALCIUM 7.6 mg/dL (8.4-10.2); CREATININE, SERUM 1.12 mg/dL (0.57-1.11); POTASSIUM 3.8 mmol/L (3.5-5.1)
[2020-06-16] MEDS: INSULIN REGULAR, HUMAN 100 UNIT/1 ML 3ML VIAL SQ SCH ×3 (07:30→16:51)
[2020-06-16 08:16] VITALS: BP 107/61
[2020-06-16 09:00] VITALS: BP 107/61
[2020-06-16] MEDS: CLOPIDOGREL BISULFATE 75 MG TAB PO SCH (09:00)
[2020-06-16] MEDS: PANTOPRAZOLE 40 MG 10ML VIAL IV SCH (09:00)
[2020-06-16] MEDS: HEPARIN SOD (PORCINE) 5,000 UNIT/ML VIAL SC SCH (09:00)
[2020-06-16] MEDS: CARVEDILOL 3.125 MG TAB PO SCH (09:00)
[2020-06-16] MEDS: BUMETANIDE 1 MG TAB PO SCH ×2 (09:00→16:51)
[2020-06-16] MEDS: LEVETIRACETAM 500 MG TAB PO SCH ×2 (09:00→16:51)
[2020-06-16 11:34] VITALS: BP 125/54
[2020-06-16] MEDS ORDERED: CEFAZOLIN SOD 1 GM VIAL IV SCH (14:15)
[2020-06-16] MEDS ORDERED: CEFAZOLIN SOD 2 GM/NS 50ML 50 ML IV ONE (14:45)
[2020-06-16 15:39] VITALS: BP 109/69
[2020-06-16] MEDS ORDERED: BUMETANIDE2 MG PO ×2 (17:56→18:21)
[2020-06-16] MEDS ORDERED: CEFAZOLIN2 GM/100 M IV (18:24)
== END 2020-06-16 20:17 | disposition home or self-care (01) | DRG 871 ==
LOC: ER 22:43 → ERHOLD 06-05 02:02 → OBSVTOIN 06-05 05:08 → ICU 06-05 09:54 → MED/SURG3 06-13 21:11
PROVIDERS: ADMIT Internal Medicine; ATTEND Internal Medicine
PROC: 02HV33Z Insertion of Infusion Device into Superior Vena Cava, Percutaneous Approach (ICD-10-PCS; principal; 2020-06-05)
PROC: 5A1D70Z Performance of Urinary Filtration, Intermittent, Less than 6 Hours Per Day (ICD-10-PCS; 2020-06-05)
DX: A41.02 Sepsis due to Methicillin resistant Staphylococcus aureus (principal); R65.21 Severe sepsis with septic shock; N17.0 Acute kidney failure with tubular necrosis; G93.41 Metabolic encephalopathy; Z68.43 Body mass index [BMI] 50.0-59.9, adult; E87.2 Acidosis; N17.9 Acute kidney failure, unspecified; N12 Tubulo-interstitial nephritis, not specified as acute or chronic; I50.32 Chronic diastolic (congestive) heart failure; R16.2 Hepatomegaly with splenomegaly, not elsewhere classified; E11.9 Type 2 diabetes mellitus without complications; E66.01 Morbid (severe) obesity due to excess calories; E78.00 Pure hypercholesterolemia, unspecified; E78.5 Hyperlipidemia, unspecified; T40.605A Adverse effect of unspecified narcotics, initial encounter; Y92.009 Unspecified place in unspecified non-institutional (private) residence as the place of occurrence of the external cause; I25.2 Old myocardial infarction; I25.10 Atherosclerotic heart disease of native coronary artery without angina pectoris; Z95.1 Presence of aortocoronary bypass graft; I11.0 Hypertensive heart disease with heart failure; G47.30 Sleep apnea, unspecified; Z85.038 Personal history of other malignant neoplasm of large intestine; A41.51 Sepsis due to Escherichia coli [E. coli]
CPT/HCPCS: 36415; 36569; 51700; 70450; 71045; 74176; 74230; 76700; 80048; 80053; 80307; 80329; 81001; 82140; 82550; 82553; 82948; 83605; 83735; 83880; 84484; 85025; 85610; 85730; 87040; 87071; 87086; 87186; 87205; 90962; 93005; 93306; 93970; 93971; 94660; 96372; 97139; 99251; 99284; J0690; J0696; J1644; J1815; J1817; J1940; J2150; J2310; J2543; J3370; J3480; J7030; J7040; J7050; J7070; U0002

== ENCOUNTER 2020-06-24 17:25 | Inpatient (IN) | payer MEDICARE ==
[~2020-06-24] VITALS: Ht 162.6 cm; Wt 131.5 kg
[~2020-06-24 17:25] MED LIST changes: +BUMETANIDE2 MG PO; +CEFAZOLIN2 GM/100 M IV
[2020-06-24] MEDS ORDERED: SODIUM CHLORIDE 0.9% 1000ML 1,000 ML IV STA (17:33)
[2020-06-24 18:34] LABS: BASOPHILS % 0.5 % (0.0-1.0); EOSINOPHILS # (AUTO) 0.4 (0.0-0.4); EOSINOPHILS % 4.7 % (0.0-6.0); HEMATOCRIT 29.9 % (34.2-44.1); HEMOGLOBIN 9.4 g/dL (12.0-16.0); LYMPHOCYTES % 12.5 % (18.0-39.1); MEAN CORPUSCULAR HEMOGLOBIN 27.5 pg (28-32); MEAN CORPUSCULAR HGB CONC 31.4 g/dL (31-35); MEAN CORPUSCULAR VOLUME 87.4 fL (81-99); MONOCYTES # (AUTO) 0.8 (0.2-0.8); MONOCYTES % 9.3 % (4.4-11.3); NEUTROPHILS # (AUTO) 5.9 (2.1-6.9); NEUTROPHILS % 72.8 % (38.7-80.0); PLATELET COUNT 377 x10e3/uL (140-360); RED BLOOD COUNT 3.42 x10e6/uL (3.6-5.1); RED CELL DISTRIBUTION WIDTH 18.5 % (11.7-14.4)
[2020-06-24 18:42] LABS: CLARITY,URINE HAZY (CLEAR); COLOR,URINE YELLOW (YELLOW); KETONES,URINE NEGATIVE (NEGATIVE); LEUKOCYTE ESTERASE ,URINE SMALL (NEGATIVE); NITRITE,URINE NEGATIVE (NEGATIVE); PROTEIN,URINE DIPSTICK TRACE (NEGATIVE)
[2020-06-24 18:43] LABS: URINE UROBILINOGEN 0.2 mg/dL (0.2 - 1)
[2020-06-24 18:47] LABS: BACTERIA,URINE FEW /HPF; EPITHELIAL CELLS,URINE FEW /LPF
[2020-06-24 18:48] LABS: MUCUS,URINE FEW (RARE); YEAST,URINE MODERATE
[2020-06-24 18:55] LABS: ALBUMIN 1.9 g/dL (3.5-5.0); ALBUMIN/GLOBULIN RATIO 0.4 (0.8-2.0); ALKALINE PHOSPHATASE 305 IU/L (40-150); BLOOD UREA NITROGEN 18 mg/dL (7-26); BUN/CREATININE RATIO 17 (6-25); CALCIUM 7.8 mg/dL (8.4-10.2); CARBON DIOXIDE 33 mmol/L (22-29); CHLORIDE 98 mmol/L (98-107); CREATINE KINASE 31 IU/L (29-168); CREATININE, SERUM 1.05 mg/dL (0.57-1.11); EST GLOMERULAR FILTRATION RATE 53 ML/MIN (60-); GLUCOSE 72 mg/dL (74-118); LIPASE 34 U/L (8-78); SODIUM 141 mmol/L (136-145)
[2020-06-24] MEDS ORDERED: NOVOLIN N100 UNIT/1 SC (19:01)
[2020-06-24] MEDS ORDERED: NOVOLIN R100 UNIT/1 SC (19:01)
[2020-06-24 19:13] LABS: ALANINE AMINOTRANSFERASE < 6 IU/L (0-55)
[2020-06-24] MEDS ORDERED: MORPHINE SULFATE INJ 4 MG/ML INJ 1ML IV PRN (19:30)
[2020-06-24] MEDS ORDERED: ONDANSETRON HCL INJ 2MG/ML 2ML 2 MG/ML VIAL IV PRN (19:30)
[2020-06-24] MEDS ORDERED: DEXTROSE 50% SYRINGE 50 ML IV PRN (19:45)
[2020-06-24] MEDS: PIPER-TAZ 3.375 GM 50 ML IV SCH (20:42)
[2020-06-24] MEDS: INSULIN REGULAR, HUMAN 100 UNIT/1 ML 3ML VIAL SQ SCH (20:47)
[2020-06-24] MEDS ORDERED: SODIUM CHLORIDE 0.9% 50ML 50 ML ONE (20:50)
[2020-06-24] MEDS ORDERED: PIPERACILLIN/TAZOBAC 3.375 GM VIAL ONE (20:50)
[2020-06-24 21:30] VITALS: BP 122/58
[2020-06-24 21:37] VITALS: BP 122/58
[2020-06-24 21:39] VITALS: BP 122/58
[2020-06-25] VITALS (8 sets, daily range): BP systolic 100–119; BP diastolic 57–70
[2020-06-25] MEDS ORDERED: PIPERACILLIN/TAZOBAC 3.375 GM VIAL ONE ×2 (00:44→06:34)
[2020-06-25] MEDS ORDERED: SODIUM CHLORIDE 0.9% 50ML 50 ML ONE ×2 (00:45→06:34)
[2020-06-25] MEDS ORDERED: SODIUM CHLORIDE 0.9% 250ML 250 ML ONE ×2 (00:49→20:20)
[2020-06-25] MEDS: PIPER-TAZ 3.375 GM 50 ML IV SCH ×2 (00:51→06:34)
[2020-06-25 06:24] LABS: BASOPHILS % 0.5 % (0.0-1.0); EOSINOPHILS # (AUTO) 0.4 (0.0-0.4); EOSINOPHILS % 4.3 % (0.0-6.0); HEMOGLOBIN 9.4 g/dL (12.0-16.0); LYMPHOCYTES # (AUTO) 1.1 (1.0-3.2); LYMPHOCYTES % 13.3 % (18.0-39.1); MEAN CORPUSCULAR HEMOGLOBIN 27.3 pg (28-32); MEAN CORPUSCULAR HGB CONC 31.3 g/dL (31-35); MEAN CORPUSCULAR VOLUME 87.2 fL (81-99); MONOCYTES # (AUTO) 0.7 (0.2-0.8); NEUTROPHILS # (AUTO) 5.9 (2.1-6.9); NEUTROPHILS % 72.4 % (38.7-80.0); PLATELET COUNT 370 x10e3/uL (140-360); RED BLOOD COUNT 3.44 x10e6/uL (3.6-5.1); RED CELL DISTRIBUTION WIDTH 18.6 % (11.7-14.4)
[2020-06-25 07:30] LABS: ALBUMIN 1.9 g/dL (3.5-5.0); ALBUMIN/GLOBULIN RATIO 0.4 (0.8-2.0); ALKALINE PHOSPHATASE 298 IU/L (40-150); ANION GAP 13.7 mmol/L (8-16); BLOOD UREA NITROGEN 16 mg/dL (7-26); BUN/CREATININE RATIO 16 (6-25); CALCIUM 7.7 mg/dL (8.4-10.2); CARBON DIOXIDE 34 mmol/L (22-29); CHLORIDE 98 mmol/L (98-107); CREATININE, SERUM 0.99 mg/dL (0.57-1.11); EST GLOMERULAR FILTRATION RATE 56 ML/MIN (60-); SODIUM 143 mmol/L (136-145)
[2020-06-25] MEDS: INSULIN REGULAR, HUMAN 100 UNIT/1 ML 3ML VIAL SQ SCH (07:30)
[2020-06-25 07:40] LABS: POTASSIUM 2.7 mmol/L (3.5-5.1)
[2020-06-25 07:41] LABS: ALANINE AMINOTRANSFERASE < 6 IU/L (0-55); GLUCOSE 48 mg/dL (74-118)
[2020-06-25] MEDS ORDERED: MEROPENEM 500MG 500 MG in SODIUM CHLORIDE 0.9% 50ML 50 ML IV SCH ×6 (09:45)
[2020-06-25] MEDS ORDERED: FLUCONAZOLE 200 MG/100 ML 100 ML IV SCH ×3 (09:45)
[2020-06-25] MEDS ORDERED: POTASSIUM CHLORIDE 10MEQ EA PO ONE ×4 (09:45→10:30)
[2020-06-25] MEDS ORDERED: DEXTROSE 50% SYRINGE 50 ML IV PRN ×4 (09:45)
[2020-06-25] MEDS: INSULIN GLARGINE 100 UNITS/ML VIAL SQ SCH ×2 (10:30→21:51)
[2020-06-25] MEDS: FLUCONAZOLE 200 MG/100 ML 100 ML IV SCH (10:50)
[2020-06-25] MEDS ORDERED: INSULIN LISPRO 100 UNIT/1 ML 3ML VIAL SQ SCH ×3 (11:30)
[2020-06-25] MEDS: INSULIN LISPRO 100 UNIT/1 ML 3ML VIAL SQ SCH ×4 (11:30→21:50)
[2020-06-25] MEDS: PIPERACILLIN/TAZOBAC 3.375 GM in SODIUM CHLORIDE 0.9% 50ML 50 ML IV SCH ×2 (12:32→17:33)
[2020-06-25] MEDS: MEROPENEM 500MG/ NS 50ML 50 ML IV SCH ×2 (14:09→21:44)
[2020-06-25] MEDS ORDERED: INSULIN GLARGINE 100 UNITS/ML VIAL SQ SCH ×3 (16:30)
[2020-06-25] MEDS ORDERED: ENOXAPARIN SOD INJ 40 MG/0.4 ML SYR SC SCH ×3 (17:00)
[2020-06-25] MEDS ORDERED: CARVEDILOL 3.125 MG TAB PO SCH ×3 (17:00)
[2020-06-25] MEDS: CARVEDILOL 3.125 MG TAB PO SCH (17:32)
[2020-06-25] MEDS: ENOXAPARIN SOD INJ 40 MG/0.4 ML SYR SC SCH (17:33)
[2020-06-26] VITALS (8 sets, daily range): BP systolic 103–131; BP diastolic 34–78
[2020-06-26] MEDS: PIPERACILLIN/TAZOBAC 3.375 GM in SODIUM CHLORIDE 0.9% 50ML 50 ML IV SCH ×2 (00:30→05:50)
[2020-06-26] MEDS: MEROPENEM 500MG/ NS 50ML 50 ML IV SCH ×3 (06:24→21:13)
[2020-06-26 06:29] LABS: MAGNESIUM 1.5 MG/DL (1.3-2.1)
[2020-06-26 06:48] LABS: THYROID STIMULATING HORMONE 3.723 uIU/mL (0.350-4.940)
[2020-06-26] MEDS: INSULIN LISPRO 100 UNIT/1 ML 3ML VIAL SQ SCH ×4 (07:30→21:13)
[2020-06-26 08:49] LABS: BASOPHILS % 0.5 % (0.0-1.0); EOSINOPHILS # (AUTO) 0.3 (0.0-0.4); EOSINOPHILS % 4.1 % (0.0-6.0); HEMATOCRIT 29.7 % (34.2-44.1); HEMOGLOBIN 9.4 g/dL (12.0-16.0); LYMPHOCYTES % 12.8 % (18.0-39.1); MEAN CORPUSCULAR HEMOGLOBIN 27.8 pg (28-32); MEAN CORPUSCULAR HGB CONC 31.6 g/dL (31-35); MEAN CORPUSCULAR VOLUME 87.9 fL (81-99); MONOCYTES # (AUTO) 0.7 (0.2-0.8); MONOCYTES % 9.1 % (4.4-11.3); NEUTROPHILS # (AUTO) 5.5 (2.1-6.9); PLATELET COUNT 340 x10e3/uL (140-360); RED BLOOD COUNT 3.38 x10e6/uL (3.6-5.1); RED CELL DISTRIBUTION WIDTH 18.5 % (11.7-14.4)
[2020-06-26 08:57] LABS: ANION GAP 14.2 mmol/L (8-16); BLOOD UREA NITROGEN 13 mg/dL (7-26); BUN/CREATININE RATIO 14 (6-25); CALCIUM 7.8 mg/dL (8.4-10.2); CARBON DIOXIDE 31 mmol/L (22-29); CHLORIDE 98 mmol/L (98-107); CREATININE, SERUM 0.92 mg/dL (0.57-1.11); EST GLOMERULAR FILTRATION RATE > 60 ML/MIN (60-); GLUCOSE 93 mg/dL (74-118); POTASSIUM 3.2 mmol/L (3.5-5.1); SODIUM 140 mmol/L (136-145)
[2020-06-26] MEDS: ASPIRIN 81 MG CHEW TAB PO SCH (08:59)
[2020-06-26] MEDS: PANTOPRAZOLE SOD 40 MG TABEC PO SCH (08:59)
[2020-06-26] MEDS: LEVETIRACETAM 500 MG TAB PO SCH ×2 (08:59→16:33)
[2020-06-26] MEDS ORDERED: VENLAFAXINE HCL 75 MG TAB PO SCH ×3 (09:00)
[2020-06-26] MEDS ORDERED: LEVETIRACETAM 500 MG TAB PO SCH ×4 (09:00)
[2020-06-26] MEDS ORDERED: ASPIRIN 81 MG CHEW TAB PO SCH ×3 (09:00)
[2020-06-26] MEDS ORDERED: PANTOPRAZOLE SOD 40 MG TABEC PO SCH ×3 (09:00)
[2020-06-26] MEDS: INSULIN GLARGINE 100 UNITS/ML VIAL SQ SCH ×2 (09:00→21:12)
[2020-06-26] MEDS ORDERED: CLOPIDOGREL BISULFATE 75 MG TAB PO SCH ×3 (09:00)
[2020-06-26] MEDS: CARVEDILOL 3.125 MG TAB PO SCH ×2 (09:00→16:38)
[2020-06-26] MEDS: VENLAFAXINE HCL 75 MG TAB PO SCH (09:01)
[2020-06-26] MEDS: CLOPIDOGREL BISULFATE 75 MG TAB PO SCH (09:02)
[2020-06-26] MEDS ORDERED: ONDANSETRON HCL 4 MG ORAL DISINTEGRATING TAB PO PRN (09:15)
[2020-06-26] MEDS: FLUCONAZOLE 200 MG/100 ML 100 ML IV SCH (09:15)
[2020-06-26] MEDS ORDERED: POTASSIUM CHLORIDE 10MEQ EA PO ONE (10:00)
[2020-06-26] MEDS: MAGNESIUM OXIDE 400 MG TAB PO SCH (16:33)
[2020-06-26] MEDS: ENOXAPARIN SOD INJ 40 MG/0.4 ML SYR SC SCH (16:41)
[2020-06-26] MEDS: HYDROCODONE/APAP 7.5MG-325MG 1 EA TAB PO PRN (18:00)
[2020-06-27] VITALS (9 sets, daily range): BP systolic 106–145; BP diastolic 32–72
[2020-06-27] MEDS: MEROPENEM 500MG/ NS 50ML 50 ML IV SCH ×3 (05:33→22:37)
[2020-06-27 06:13] LABS: BASOPHILS % 0.4 % (0.0-1.0); EOSINOPHILS # (AUTO) 0.3 (0.0-0.4); EOSINOPHILS % 4.2 % (0.0-6.0); HEMATOCRIT 29.5 % (34.2-44.1); HEMOGLOBIN 9.2 g/dL (12.0-16.0); LYMPHOCYTES # (AUTO) 1.1 (1.0-3.2); LYMPHOCYTES % 14.6 % (18.0-39.1); MEAN CORPUSCULAR HEMOGLOBIN 27.5 pg (28-32); MEAN CORPUSCULAR HGB CONC 31.2 g/dL (31-35); MEAN CORPUSCULAR VOLUME 88.1 fL (81-99); MONOCYTES # (AUTO) 0.8 (0.2-0.8); MONOCYTES % 9.9 % (4.4-11.3); NEUTROPHILS # (AUTO) 5.4 (2.1-6.9); NEUTROPHILS % 70.4 % (38.7-80.0); PLATELET COUNT 315 x10e3/uL (140-360); RED BLOOD COUNT 3.35 x10e6/uL (3.6-5.1); RED CELL DISTRIBUTION WIDTH 18.2 % (11.7-14.4)
[2020-06-27 06:44] LABS: ANION GAP 13.6 mmol/L (8-16); BLOOD UREA NITROGEN 14 mg/dL (7-26); BUN/CREATININE RATIO 16 (6-25); CALCIUM 7.9 mg/dL (8.4-10.2); CARBON DIOXIDE 32 mmol/L (22-29); CHLORIDE 97 mmol/L (98-107); CREATININE, SERUM 0.89 mg/dL (0.57-1.11); EST GLOMERULAR FILTRATION RATE > 60 ML/MIN (60-); GLUCOSE 107 mg/dL (74-118); POTASSIUM 3.6 mmol/L (3.5-5.1); SODIUM 139 mmol/L (136-145)
[2020-06-27] MEDS: INSULIN LISPRO 100 UNIT/1 ML 3ML VIAL SQ SCH ×4 (07:30→21:00)
[2020-06-27] MEDS: INSULIN GLARGINE 100 UNITS/ML VIAL SQ SCH ×2 (09:00→22:36)
[2020-06-27] MEDS: PANTOPRAZOLE SOD 40 MG TABEC PO SCH (09:02)
[2020-06-27] MEDS: ASPIRIN 81 MG CHEW TAB PO SCH (09:02)
[2020-06-27] MEDS: CLOPIDOGREL BISULFATE 75 MG TAB PO SCH (09:03)
[2020-06-27] MEDS: CARVEDILOL 3.125 MG TAB PO SCH ×2 (09:03→17:16)
[2020-06-27] MEDS: MAGNESIUM OXIDE 400 MG TAB PO SCH ×2 (09:03→17:15)
[2020-06-27] MEDS: LEVETIRACETAM 500 MG TAB PO SCH ×2 (09:03→17:15)
[2020-06-27] MEDS: VENLAFAXINE HCL 75 MG TAB PO SCH (09:04)
[2020-06-27] MEDS: FLUCONAZOLE 200 MG/100 ML 100 ML IV SCH (09:04)
[2020-06-27] MEDS: HYDROCODONE/APAP 7.5MG-325MG 1 EA TAB PO PRN (13:21)
[2020-06-27] MEDS ORDERED: KETOROLAC TROMETHAMINE 30 MG/ML VIAL IV PRN (16:45)
[2020-06-27] MEDS ORDERED: METHYLPREDNISOLONE SOD SUCC 125 MG/2ML VIAL IV ONE (17:00)
[2020-06-27] MEDS: ENOXAPARIN SOD INJ 40 MG/0.4 ML SYR SC SCH (17:19)
[2020-06-27] MEDS ORDERED: SODIUM CHLORIDE 0.9% 250ML 250 ML ONE (19:37)
[2020-06-28] VITALS (9 sets, daily range): BP systolic 114–143; BP diastolic 52–67
[2020-06-28] MEDS: MEROPENEM 500MG/ NS 50ML 50 ML IV SCH ×3 (06:06→21:48)
[2020-06-28] MEDS: INSULIN LISPRO 100 UNIT/1 ML 3ML VIAL SQ SCH ×4 (07:29→21:06)
[2020-06-28] MEDS: ASPIRIN 81 MG CHEW TAB PO SCH (08:14)
[2020-06-28] MEDS: MAGNESIUM OXIDE 400 MG TAB PO SCH ×2 (08:14→16:37)
[2020-06-28] MEDS: CARVEDILOL 3.125 MG TAB PO SCH ×2 (08:16→16:38)
[2020-06-28] MEDS: VENLAFAXINE HCL 75 MG TAB PO SCH (08:17)
[2020-06-28] MEDS: CLOPIDOGREL BISULFATE 75 MG TAB PO SCH (08:17)
[2020-06-28] MEDS: LEVETIRACETAM 500 MG TAB PO SCH ×2 (08:17→16:37)
[2020-06-28] MEDS: PANTOPRAZOLE SOD 40 MG TABEC PO SCH (08:17)
[2020-06-28] MEDS: INSULIN GLARGINE 100 UNITS/ML VIAL SQ SCH ×3 (08:25→21:11)
[2020-06-28] MEDS: FLUCONAZOLE 200 MG/100 ML 100 ML IV SCH (10:02)
[2020-06-28] MEDS ORDERED: FLUCONAZOLE100 MG PO (15:29)
[2020-06-28] MEDS ORDERED: TYLENOL # 31 EA PO (15:29)
[2020-06-28] MEDS ORDERED: PREDNISONE20 MG PO (15:36)
[2020-06-28] MEDS ORDERED: FUROSEMIDE INJ 10 MG/ML 4 ML VIAL IV NR (15:45)
[2020-06-28] MEDS: ENOXAPARIN SOD INJ 40 MG/0.4 ML SYR SC SCH (16:38)
[2020-06-29] VITALS (9 sets, daily range): BP systolic 116–138; BP diastolic 54–79
[2020-06-29] MEDS: MEROPENEM 500MG/ NS 50ML 50 ML IV SCH (06:00)
[2020-06-29] MEDS: INSULIN LISPRO 100 UNIT/1 ML 3ML VIAL SQ SCH ×4 (07:30→21:11)
[2020-06-29] MEDS: ASPIRIN 81 MG CHEW TAB PO SCH (09:02)
[2020-06-29] MEDS: PANTOPRAZOLE SOD 40 MG TABEC PO SCH (09:02)
[2020-06-29] MEDS: MAGNESIUM OXIDE 400 MG TAB PO SCH ×2 (09:03→15:48)
[2020-06-29] MEDS: CLOPIDOGREL BISULFATE 75 MG TAB PO SCH (09:03)
[2020-06-29] MEDS: CARVEDILOL 3.125 MG TAB PO SCH ×2 (09:03→15:48)
[2020-06-29] MEDS: LEVETIRACETAM 500 MG TAB PO SCH ×2 (09:03→15:48)
[2020-06-29] MEDS: VENLAFAXINE HCL 75 MG TAB PO SCH (09:03)
[2020-06-29] MEDS: FLUCONAZOLE 200 MG/100 ML 100 ML IV SCH (09:05)
[2020-06-29] MEDS: INSULIN GLARGINE 100 UNITS/ML VIAL SQ SCH (09:08)
[2020-06-29] MEDS ORDERED: FUROSEMIDE INJ 10 MG/ML 4 ML VIAL IV ONE (14:00)
[2020-06-29] MEDS: PREDNISONE 20 MG TAB PO SCH (15:45)
[2020-06-29] MEDS: ENOXAPARIN SOD INJ 40 MG/0.4 ML SYR SC SCH (15:48)
[2020-06-29] MEDS: CEFAZOLIN SOD 2 GM in SODIUM CHLORIDE 0.9% 100 ML 100 ML IV SCH ×2 (16:36→22:00)
[2020-06-30] VITALS (7 sets, daily range): BP systolic 110–140; BP diastolic 64–77
[2020-06-30] MEDS: CEFAZOLIN SOD 2 GM in SODIUM CHLORIDE 0.9% 100 ML 100 ML IV SCH ×3 (06:22→21:04)
[2020-06-30] MEDS: LEVETIRACETAM 500 MG TAB PO SCH ×2 (08:59→16:46)
[2020-06-30] MEDS: FLUCONAZOLE 200 MG/100 ML 100 ML IV SCH (08:59)
[2020-06-30] MEDS: PANTOPRAZOLE SOD 40 MG TABEC PO SCH (08:59)
[2020-06-30] MEDS: VENLAFAXINE HCL 75 MG TAB PO SCH (08:59)
[2020-06-30] MEDS: MAGNESIUM OXIDE 400 MG TAB PO SCH ×2 (08:59→16:45)
[2020-06-30] MEDS: PREDNISONE 20 MG TAB PO SCH (08:59)
[2020-06-30] MEDS: ASPIRIN 81 MG CHEW TAB PO SCH (08:59)
[2020-06-30] MEDS: CLOPIDOGREL BISULFATE 75 MG TAB PO SCH (08:59)
[2020-06-30] MEDS: CARVEDILOL 3.125 MG TAB PO SCH ×2 (08:59→16:47)
[2020-06-30] MEDS: INSULIN LISPRO 100 UNIT/1 ML 3ML VIAL SQ SCH ×4 (09:12→20:53)
[2020-06-30] MEDS: INSULIN GLARGINE 100 UNITS/ML VIAL SQ SCH ×2 (09:12→20:55)
[2020-06-30] MEDS: ENOXAPARIN SOD INJ 40 MG/0.4 ML SYR SC SCH (16:45)
[2020-06-30] MEDS: FUROSEMIDE INJ 10 MG/ML 4 ML VIAL IV SCH (20:45)
[2020-06-30] MEDS: HYDROCODONE/APAP 7.5MG-325MG 1 EA TAB PO PRN (21:30)
[2020-07-01] VITALS (8 sets, daily range): BP systolic 106–156; BP diastolic 50–80
[2020-07-01] MEDS: CEFAZOLIN SOD 2 GM in SODIUM CHLORIDE 0.9% 100 ML 100 ML IV SCH ×3 (05:26→21:50)
[2020-07-01] MEDS: INSULIN LISPRO 100 UNIT/1 ML 3ML VIAL SQ SCH ×4 (07:30→21:45)
[2020-07-01] MEDS: PANTOPRAZOLE SOD 40 MG TABEC PO SCH (08:10)
[2020-07-01] MEDS: FUROSEMIDE INJ 10 MG/ML 4 ML VIAL IV SCH (08:11)
[2020-07-01] MEDS: ASPIRIN 81 MG CHEW TAB PO SCH (08:11)
[2020-07-01] MEDS: CARVEDILOL 3.125 MG TAB PO SCH ×2 (08:12→16:42)
[2020-07-01] MEDS: VENLAFAXINE HCL 75 MG TAB PO SCH (08:12)
[2020-07-01] MEDS: CLOPIDOGREL BISULFATE 75 MG TAB PO SCH (08:13)
[2020-07-01] MEDS: PREDNISONE 20 MG TAB PO SCH (08:13)
[2020-07-01] MEDS: MAGNESIUM OXIDE 400 MG TAB PO SCH ×2 (08:13→16:40)
[2020-07-01] MEDS: LEVETIRACETAM 500 MG TAB PO SCH ×2 (08:13→16:40)
[2020-07-01] MEDS: FLUCONAZOLE 200 MG/100 ML 100 ML IV SCH (09:00)
[2020-07-01] MEDS: INSULIN GLARGINE 100 UNITS/ML VIAL SQ SCH ×2 (09:00→21:45)
[2020-07-01] MEDS: ENOXAPARIN SOD INJ 40 MG/0.4 ML SYR SC SCH (16:40)
[2020-07-02] VITALS (8 sets, daily range): BP systolic 109–129; BP diastolic 53–75
[2020-07-02] MEDS: CEFAZOLIN SOD 2 GM in SODIUM CHLORIDE 0.9% 100 ML 100 ML IV SCH ×3 (06:20→21:28)
[2020-07-02 06:52] LABS: BASOPHILS % 0.3 % (0.0-1.0); EOSINOPHILS # (AUTO) 0.1 (0.0-0.4); EOSINOPHILS % 0.9 % (0.0-6.0); HEMATOCRIT 30.3 % (34.2-44.1); HEMOGLOBIN 9.4 g/dL (12.0-16.0); LYMPHOCYTES # (AUTO) 1.3 (1.0-3.2); LYMPHOCYTES % 14.3 % (18.0-39.1); MEAN CORPUSCULAR HEMOGLOBIN 27.6 pg (28-32); MEAN CORPUSCULAR VOLUME 88.9 fL (81-99); MONOCYTES # (AUTO) 0.5 (0.2-0.8); MONOCYTES % 5.4 % (4.4-11.3); NEUTROPHILS # (AUTO) 7.2 (2.1-6.9); NEUTROPHILS % 78.4 % (38.7-80.0); PLATELET COUNT 272 x10e3/uL (140-360); RED BLOOD COUNT 3.41 x10e6/uL (3.6-5.1); RED CELL DISTRIBUTION WIDTH 18.6 % (11.7-14.4)
[2020-07-02 07:10] LABS: ANION GAP 15.2 mmol/L (8-16); CALCIUM 8.6 mg/dL (8.4-10.2); CREATININE, SERUM 0.96 mg/dL (0.57-1.11); POTASSIUM 4.2 mmol/L (3.5-5.1)
[2020-07-02] MEDS: PANTOPRAZOLE SOD 40 MG TABEC PO SCH (08:28)
[2020-07-02] MEDS: CARVEDILOL 3.125 MG TAB PO SCH ×2 (08:29→16:50)
[2020-07-02] MEDS: ASPIRIN 81 MG CHEW TAB PO SCH (08:29)
[2020-07-02] MEDS: LEVETIRACETAM 500 MG TAB PO SCH ×2 (08:30→16:50)
[2020-07-02] MEDS: CLOPIDOGREL BISULFATE 75 MG TAB PO SCH (08:30)
[2020-07-02] MEDS: PREDNISONE 20 MG TAB PO SCH (08:30)
[2020-07-02] MEDS: MAGNESIUM OXIDE 400 MG TAB PO SCH ×2 (08:30→16:51)
[2020-07-02] MEDS: VENLAFAXINE HCL 75 MG TAB PO SCH (08:30)
[2020-07-02] MEDS: INSULIN GLARGINE 100 UNITS/ML VIAL SQ SCH ×2 (08:38→21:28)
[2020-07-02] MEDS: INSULIN LISPRO 100 UNIT/1 ML 3ML VIAL SQ SCH ×4 (08:39→21:28)
[2020-07-02] MEDS: HYDROCODONE/APAP 7.5MG-325MG 1 EA TAB PO PRN ×2 (09:16→16:52)
[2020-07-02] MEDS ORDERED: SODIUM CHLORIDE 0.9% 100 ML ONE (14:52)
[2020-07-02] MEDS ORDERED: SODIUM CHLORIDE 0.9% 250ML 250 ML ONE (20:02)
[2020-07-03] VITALS (8 sets, daily range): BP systolic 126–147; BP diastolic 61–84
[2020-07-03] MEDS: CEFAZOLIN SOD 2 GM in SODIUM CHLORIDE 0.9% 100 ML 100 ML IV SCH ×3 (05:32→21:01)
[2020-07-03] MEDS: ASPIRIN 81 MG CHEW TAB PO SCH (08:15)
[2020-07-03] MEDS: PANTOPRAZOLE SOD 40 MG TABEC PO SCH (08:15)
[2020-07-03] MEDS: MAGNESIUM OXIDE 400 MG TAB PO SCH ×2 (08:16→17:08)
[2020-07-03] MEDS: VENLAFAXINE HCL 75 MG TAB PO SCH (08:17)
[2020-07-03] MEDS: PREDNISONE 20 MG TAB PO SCH (08:17)
[2020-07-03] MEDS: CLOPIDOGREL BISULFATE 75 MG TAB PO SCH (08:17)
[2020-07-03] MEDS: LEVETIRACETAM 500 MG TAB PO SCH ×2 (08:17→17:08)
[2020-07-03] MEDS: CARVEDILOL 3.125 MG TAB PO SCH ×2 (08:19→17:08)
[2020-07-03] MEDS: INSULIN GLARGINE 100 UNITS/ML VIAL SQ SCH ×2 (09:13→21:54)
[2020-07-03] MEDS: INSULIN LISPRO 100 UNIT/1 ML 3ML VIAL SQ SCH ×4 (09:15→21:54)
[2020-07-03] MEDS: HYDROCODONE/APAP 7.5MG-325MG 1 EA TAB PO PRN (12:01)
[2020-07-04] VITALS: BP 125/57
[2020-07-04 04:00] VITALS: BP 155/79
[2020-07-04] MEDS: CEFAZOLIN SOD 2 GM in SODIUM CHLORIDE 0.9% 100 ML 100 ML IV SCH ×2 (05:52→14:17)
[2020-07-04] MEDS: INSULIN LISPRO 100 UNIT/1 ML 3ML VIAL SQ SCH ×3 (07:30→17:00)
[2020-07-04 07:53] VITALS: BP 131/72
[2020-07-04 08:34] VITALS: BP 131/72
[2020-07-04] MEDS: VENLAFAXINE HCL 75 MG TAB PO SCH (08:54)
[2020-07-04] MEDS: PREDNISONE 20 MG TAB PO SCH (08:54)
[2020-07-04] MEDS: PANTOPRAZOLE SOD 40 MG TABEC PO SCH (08:54)
[2020-07-04] MEDS: CLOPIDOGREL BISULFATE 75 MG TAB PO SCH (08:54)
[2020-07-04] MEDS: ASPIRIN 81 MG CHEW TAB PO SCH (08:54)
[2020-07-04] MEDS: MAGNESIUM OXIDE 400 MG TAB PO SCH ×2 (08:54→17:29)
[2020-07-04] MEDS: LEVETIRACETAM 500 MG TAB PO SCH ×2 (08:54→17:29)
[2020-07-04] MEDS: CARVEDILOL 3.125 MG TAB PO SCH ×2 (08:55→17:30)
[2020-07-04] MEDS: INSULIN GLARGINE 100 UNITS/ML VIAL SQ SCH (09:00)
[2020-07-04 11:49] VITALS: BP 143/70
[2020-07-04 15:42] VITALS: BP 136/66
== END 2020-07-04 18:19 | DRG 689 ==
LOC: ER 17:31 → ERHOLD 20:22 → MED/SURG3 21:37
PROVIDERS: ADMIT Internal Medicine; ATTEND Internal Medicine
DX: N39.0 Urinary tract infection, site not specified (principal); I50.33 Acute on chronic diastolic (congestive) heart failure; N17.9 Acute kidney failure, unspecified; Z16.12 Extended spectrum beta lactamase (ESBL) resistance; Z68.42 Body mass index [BMI] 45.0-49.9, adult; M75.101 Unspecified rotator cuff tear or rupture of right shoulder, not specified as traumatic; E11.649 Type 2 diabetes mellitus with hypoglycemia without coma; I11.0 Hypertensive heart disease with heart failure; E66.01 Morbid (severe) obesity due to excess calories; D53.9 Nutritional anemia, unspecified; Z74.09 Other reduced mobility; Z20.822 Contact with and (suspected) exposure to COVID-19; I25.10 Atherosclerotic heart disease of native coronary artery without angina pectoris; B96.20 Unspecified Escherichia coli [E. coli] as the cause of diseases classified elsewhere; M19.011 Primary osteoarthritis, right shoulder; G47.33 Obstructive sleep apnea (adult) (pediatric); R32 Unspecified urinary incontinence; I27.20 Pulmonary hypertension, unspecified; S46.011D Strain of muscle(s) and tendon(s) of the rotator cuff of right shoulder, subsequent encounter; B37.2 Candidiasis of skin and nail
CPT/HCPCS: 36415; 51700; 71045; 74176; 80048; 80053; 81001; 82550; 82553; 82607; 82746; 82948; 83036; 83540; 83605; 83690; 83735; 83880; 84443; 84466; 84484; 85025; 87040; 93005; 93971; 94660; 96372; 97139; 99251; 99284; J0690; J1450; J1650; J1815; J1940; J2543; J7050; J7512; J7799; U0002

== ENCOUNTER 2021-03-23 21:40 | Emergency (ER) | payer MEDICARE ==
[~2021-03-23] VITALS: Ht 162.6 cm; Wt 131.5 kg
[~2021-03-23 21:40] MED LIST changes: +FLUCONAZOLE100 MG PO; +NOVOLIN N100 UNIT/1 SC; +NOVOLIN R100 UNIT/1 SC; +PREDNISONE20 MG PO; +TYLENOL # 31 EA PO
[2021-03-23 22:17] LABS: BASOPHILS % 0.4 % (0.0-1.0); EOSINOPHILS # (AUTO) 0.2 (0.0-0.4); LYMPHOCYTES # (AUTO) 1.2 (1.0-3.2); LYMPHOCYTES % 14.1 % (18.0-39.1); MEAN CORPUSCULAR HEMOGLOBIN 27.6 pg (28-32); MEAN CORPUSCULAR HGB CONC 29.5 g/dL (31-35); MEAN CORPUSCULAR VOLUME 93.4 fL (81-99); MONOCYTES # (AUTO) 0.8 (0.2-0.8); MONOCYTES % 10.3 % (4.4-11.3); PLATELET COUNT 253 x10e3/uL (140-360); RED BLOOD COUNT 4.71 x10e6/uL (3.6-5.1); RED CELL DISTRIBUTION WIDTH 16.9 % (11.7-14.4)
[2021-03-23 22:35] LABS: ALBUMIN 3.3 g/dL (3.5-5.0); ALBUMIN/GLOBULIN RATIO 0.8 (0.8-2.0); CALCIUM 9.1 mg/dL (8.4-10.2); CREATININE, SERUM 0.83 mg/dL (0.57-1.11)
[2021-03-23 22:42] LABS: CREATINE KINASE MB 8.9 ng/mL (0-5.0)
[2021-03-24 00:48] VITALS: BP 147/85
== END 2021-03-24 00:40 | disposition home or self-care (01) ==
LOC: ER 21:46
DX: U07.1 COVID-19 (principal); R06.02 Shortness of breath; I50.9 Heart failure, unspecified; I12.0 Hypertensive chronic kidney disease with stage 5 chronic kidney disease or end stage renal disease; E11.22 Type 2 diabetes mellitus with diabetic chronic kidney disease; N18.6 End stage renal disease; I25.2 Old myocardial infarction; G40.909 Epilepsy, unspecified, not intractable, without status epilepticus; R94.31 Abnormal electrocardiogram [ECG] [EKG]
CPT/HCPCS: 36415; 71045; 80053; 82550; 82553; 83880; 84484; 85025; 93005; 99284; U0002

== ENCOUNTER 2021-08-17 18:27 | Inpatient (IN) | payer MEDICARE ==
[~2021-08-17] VITALS: Ht 170.2 cm; Wt 132.5 kg
[2021-08-17 19:04] LABS: BASOPHILS % 0.3 % (0.0-1.0); EOSINOPHILS # (AUTO) 0.2 (0.0-0.4); EOSINOPHILS % 2.6 % (0.0-6.0); HEMATOCRIT 39.7 % (34.2-44.1); HEMOGLOBIN 12.5 g/dL (12.0-16.0); LYMPHOCYTES # (AUTO) 1.2 (1.0-3.2); LYMPHOCYTES % 20.3 % (18.0-39.1); MEAN CORPUSCULAR HEMOGLOBIN 27.5 pg (28-32); MEAN CORPUSCULAR HGB CONC 31.5 g/dL (31-35); MEAN CORPUSCULAR VOLUME 87.4 fL (81-99); MONOCYTES # (AUTO) 0.6 (0.2-0.8); MONOCYTES % 10.1 % (4.4-11.3); NEUTROPHILS # (AUTO) 3.9 (2.1-6.9); NEUTROPHILS % 66.4 % (38.7-80.0); PLATELET COUNT 186 x10e3/uL (140-360); RED BLOOD COUNT 4.54 x10e6/uL (3.6-5.1); RED CELL DISTRIBUTION WIDTH 17.5 % (11.7-14.4)
[2021-08-17] MEDS ORDERED: FUROSEMIDE INJ 10 MG/ML 4 ML VIAL IV STA (19:19)
[2021-08-17 19:20] LABS: ALBUMIN 3.1 g/dL (3.5-5.0); ALBUMIN/GLOBULIN RATIO 0.7 (0.8-2.0); ANION GAP 15.3 mmol/L (8-16); CALCIUM 8.7 mg/dL (8.4-10.2); CREATININE, SERUM 1.03 mg/dL (0.57-1.11); POTASSIUM 3.3 mmol/L (3.5-5.1)
[2021-08-17 19:26] LABS: CREATINE KINASE MB 4.4 ng/mL (0-5.0)
[2021-08-17] MEDS ORDERED: DEXTROSE 50% SYRINGE 50 ML IV STA (21:09)
[2021-08-17] MEDS ORDERED: DEXTROSE 50% SYRINGE 50 ML IV ONE (21:22)
[2021-08-17] MEDS ORDERED: SODIUM CHLORIDE FLUSH 10 ML SYR INJ PRN (21:30)
[2021-08-17 22:45] VITALS: BP 123/82
[2021-08-17 23:00] VITALS: BP 123/83
[2021-08-18] VITALS (9 sets, daily range): BP systolic 106–140; BP diastolic 57–85
[2021-08-18 06:55] LABS: BASOPHILS % 0.3 % (0.0-1.0); EOSINOPHILS # (AUTO) 0.2 (0.0-0.4); EOSINOPHILS % 2.5 % (0.0-6.0); HEMATOCRIT 40.4 % (34.2-44.1); HEMOGLOBIN 12.7 g/dL (12.0-16.0); LYMPHOCYTES # (AUTO) 1.5 (1.0-3.2); MEAN CORPUSCULAR HEMOGLOBIN 27.7 pg (28-32); MEAN CORPUSCULAR HGB CONC 31.4 g/dL (31-35); MONOCYTES # (AUTO) 0.7 (0.2-0.8); MONOCYTES % 11.4 % (4.4-11.3); NEUTROPHILS # (AUTO) 3.9 (2.1-6.9); NEUTROPHILS % 62.5 % (38.7-80.0); PLATELET COUNT 194 x10e3/uL (140-360); RED BLOOD COUNT 4.59 x10e6/uL (3.6-5.1); RED CELL DISTRIBUTION WIDTH 17.6 % (11.7-14.4)
[2021-08-18 07:17] LABS: ALBUMIN 3.1 g/dL (3.5-5.0); ALBUMIN/GLOBULIN RATIO 0.7 (0.8-2.0); ANION GAP 15.6 mmol/L (8-16); CALCIUM 8.2 mg/dL (8.4-10.2); CREATININE, SERUM 0.99 mg/dL (0.57-1.11); POTASSIUM 3.6 mmol/L (3.5-5.1)
[2021-08-18 07:25] LABS: CREATINE KINASE MB 3.2 ng/mL (0-5.0)
[2021-08-18] MEDS ORDERED: FUROSEMIDE INJ 10 MG/ML 4 ML VIAL IV SCH (09:00)
[2021-08-18] MEDS: GABAPENTIN 100 MG CAP PO SCH (17:00)
[2021-08-18] MEDS: CARVEDILOL 3.125 MG TAB PO SCH (17:00)
[2021-08-18] MEDS: FUROSEMIDE INJ 10 MG/ML 4 ML VIAL IV SCH (17:00)
[2021-08-18] MEDS: SIMVASTATIN 40 MG TAB PO SCH (20:55)
[2021-08-18] MEDS: INSULIN LISPRO 100 UNIT/1 ML 3ML VIAL SQ SCH (20:55)
[2021-08-18] MEDS: ENOXAPARIN SOD INJ 40 MG/0.4 ML SYR SC SCH (20:55)
[2021-08-18] MEDS: ACETAMINOPHEN/CODEINE 300MG - 30MG TAB PO PRN (21:00)
[2021-08-19] VITALS (8 sets, daily range): BP systolic 101–142; BP diastolic 38–81
[2021-08-19] MEDS: INSULIN LISPRO 100 UNIT/1 ML 3ML VIAL SQ SCH ×4 (07:30→21:16)
[2021-08-19] MEDS: FUROSEMIDE INJ 10 MG/ML 4 ML VIAL IV SCH ×2 (09:00→17:21)
[2021-08-19] MEDS: ENOXAPARIN SOD INJ 40 MG/0.4 ML SYR SC SCH ×2 (09:00→21:16)
[2021-08-19] MEDS: VENLAFAXINE HCL 75 MG TAB PO SCH (09:00)
[2021-08-19] MEDS: CARVEDILOL 3.125 MG TAB PO SCH ×2 (09:00→17:21)
[2021-08-19] MEDS: GABAPENTIN 100 MG CAP PO SCH ×2 (09:00→17:21)
[2021-08-19] MEDS: CLOPIDOGREL BISULFATE 75 MG TAB PO SCH (09:00)
[2021-08-19] MEDS: ASPIRIN 81 MG CHEW TAB PO SCH (09:00)
[2021-08-19] MEDS: LEVETIRACETAM 500 MG TAB PO SCH (09:00)
[2021-08-19] MEDS: LOSARTAN POTASSIUM 25 MG TAB PO SCH (09:00)
[2021-08-19 09:09] LABS: BASOPHILS % 0.5 % (0.0-1.0); EOSINOPHILS # (AUTO) 0.1 (0.0-0.4); EOSINOPHILS % 1.6 % (0.0-6.0); HEMATOCRIT 42.6 % (34.2-44.1); HEMOGLOBIN 13.1 g/dL (12.0-16.0); LYMPHOCYTES # (AUTO) 1.1 (1.0-3.2); MEAN CORPUSCULAR HEMOGLOBIN 28.1 pg (28-32); MEAN CORPUSCULAR HGB CONC 30.8 g/dL (31-35); MEAN CORPUSCULAR VOLUME 91.4 fL (81-99); MONOCYTES # (AUTO) 0.6 (0.2-0.8); MONOCYTES % 11.1 % (4.4-11.3); NEUTROPHILS # (AUTO) 3.8 (2.1-6.9); NEUTROPHILS % 67.6 % (38.7-80.0); PLATELET COUNT 192 x10e3/uL (140-360); RED BLOOD COUNT 4.66 x10e6/uL (3.6-5.1); RED CELL DISTRIBUTION WIDTH 17.6 % (11.7-14.4)
[2021-08-19 09:25] LABS: ANION GAP 15.3 mmol/L (8-16); CREATININE, SERUM 0.98 mg/dL (0.57-1.11); MAGNESIUM 2.2 MG/DL (1.3-2.1); POTASSIUM 4.3 mmol/L (3.5-5.1)
[2021-08-19] MEDS: SIMVASTATIN 40 MG TAB PO SCH (21:16)
[2021-08-19] MEDS ORDERED: FUROSEMIDE INJ 10 MG/ML 4 ML VIAL IV SCH (22:00)
[2021-08-20] VITALS (8 sets, daily range): BP systolic 110–139; BP diastolic 46–80
[2021-08-20] MEDS: ACETAMINOPHEN/CODEINE 300MG - 30MG TAB PO PRN (00:23)
[2021-08-20] MEDS: FUROSEMIDE INJ 10 MG/ML 4 ML VIAL IV SCH ×3 (01:00→16:01)
[2021-08-20 06:23] LABS: ANION GAP 13.6 mmol/L (8-16); CALCIUM 8.7 mg/dL (8.4-10.2); CREATININE, SERUM 1.02 mg/dL (0.57-1.11); MAGNESIUM 2.2 MG/DL (1.3-2.1); POTASSIUM 3.6 mmol/L (3.5-5.1)
[2021-08-20] MEDS: INSULIN LISPRO 100 UNIT/1 ML 3ML VIAL SQ SCH ×4 (08:18→23:25)
[2021-08-20] MEDS: ASPIRIN 81 MG CHEW TAB PO SCH (08:18)
[2021-08-20] MEDS: CARVEDILOL 3.125 MG TAB PO SCH ×2 (08:19→16:02)
[2021-08-20] MEDS: GABAPENTIN 100 MG CAP PO SCH ×2 (08:20→16:01)
[2021-08-20] MEDS: LOSARTAN POTASSIUM 25 MG TAB PO SCH (08:20)
[2021-08-20] MEDS: VENLAFAXINE HCL 75 MG TAB PO SCH (08:20)
[2021-08-20] MEDS: LEVETIRACETAM 500 MG TAB PO SCH (08:20)
[2021-08-20] MEDS: CLOPIDOGREL BISULFATE 75 MG TAB PO SCH (08:20)
[2021-08-20] MEDS: ENOXAPARIN SOD INJ 40 MG/0.4 ML SYR SC SCH ×2 (08:20→23:25)
[2021-08-20] MEDS ORDERED: BALSAM PERU/CASTOR OIL 60 GM OINT...G. TP PRN (15:00)
[2021-08-20] MEDS: SIMVASTATIN 40 MG TAB PO SCH (23:23)
[2021-08-21] VITALS (9 sets, daily range): BP systolic 105–178; BP diastolic 56–72
[2021-08-21] MEDS: FUROSEMIDE INJ 10 MG/ML 4 ML VIAL IV SCH ×3 (01:05→16:20)
[2021-08-21 05:47] LABS: BASOPHILS % 0.4 % (0.0-1.0); EOSINOPHILS # (AUTO) 0.1 (0.0-0.4); EOSINOPHILS % 1.9 % (0.0-6.0); HEMATOCRIT 40.7 % (34.2-44.1); HEMOGLOBIN 12.8 g/dL (12.0-16.0); LYMPHOCYTES % 13.1 % (18.0-39.1); MEAN CORPUSCULAR HEMOGLOBIN 27.9 pg (28-32); MEAN CORPUSCULAR HGB CONC 31.4 g/dL (31-35); MEAN CORPUSCULAR VOLUME 88.7 fL (81-99); MONOCYTES # (AUTO) 0.8 (0.2-0.8); MONOCYTES % 10.5 % (4.4-11.3); NEUTROPHILS # (AUTO) 5.5 (2.1-6.9); PLATELET COUNT 193 x10e3/uL (140-360); RED BLOOD COUNT 4.59 x10e6/uL (3.6-5.1); RED CELL DISTRIBUTION WIDTH 16.8 % (11.7-14.4)
[2021-08-21 06:19] LABS: ANION GAP 15.4 mmol/L (8-16); CALCIUM 8.7 mg/dL (8.4-10.2); CREATININE, SERUM 1.02 mg/dL (0.57-1.11); MAGNESIUM 2.1 MG/DL (1.3-2.1); POTASSIUM 3.4 mmol/L (3.5-5.1)
[2021-08-21] MEDS: GABAPENTIN 100 MG CAP PO SCH ×2 (08:08→16:20)
[2021-08-21] MEDS: LEVETIRACETAM 500 MG TAB PO SCH (08:08)
[2021-08-21] MEDS: ASPIRIN 81 MG CHEW TAB PO SCH (08:08)
[2021-08-21] MEDS: ENOXAPARIN SOD INJ 40 MG/0.4 ML SYR SC SCH ×2 (08:08→21:19)
[2021-08-21] MEDS: CLOPIDOGREL BISULFATE 75 MG TAB PO SCH (08:08)
[2021-08-21] MEDS: VENLAFAXINE HCL 75 MG TAB PO SCH (08:09)
[2021-08-21] MEDS: INSULIN LISPRO 100 UNIT/1 ML 3ML VIAL SQ SCH ×4 (08:10→21:35)
[2021-08-21] MEDS: CARVEDILOL 3.125 MG TAB PO SCH ×2 (08:12→16:18)
[2021-08-21] MEDS: LOSARTAN POTASSIUM 25 MG TAB PO SCH ×2 (08:13→08:14)
[2021-08-21] MEDS ORDERED: POTASSIUM CHLORIDE 20 MEQ TAB CR PO ONE ×2 (15:30→16:30)
[2021-08-21] MEDS: SIMVASTATIN 40 MG TAB PO SCH (21:18)
[2021-08-22] VITALS (7 sets, daily range): BP systolic 97–147; BP diastolic 51–65
[2021-08-22] MEDS: FUROSEMIDE INJ 10 MG/ML 4 ML VIAL IV SCH ×3 (00:41→17:35)
[2021-08-22 05:21] LABS: ANION GAP 15.9 mmol/L (8-16); CALCIUM 9.1 mg/dL (8.4-10.2); CREATININE, SERUM 1.07 mg/dL (0.57-1.11); MAGNESIUM 2.1 MG/DL (1.3-2.1); POTASSIUM 3.9 mmol/L (3.5-5.1)
[2021-08-22] MEDS: INSULIN LISPRO 100 UNIT/1 ML 3ML VIAL SQ SCH ×4 (07:30→21:13)
[2021-08-22] MEDS: ASPIRIN 81 MG CHEW TAB PO SCH (09:17)
[2021-08-22] MEDS: CARVEDILOL 3.125 MG TAB PO SCH ×2 (09:17→17:36)
[2021-08-22] MEDS: LOSARTAN POTASSIUM 25 MG TAB PO SCH (09:18)
[2021-08-22] MEDS: LEVETIRACETAM 500 MG TAB PO SCH (09:19)
[2021-08-22] MEDS: GABAPENTIN 100 MG CAP PO SCH ×2 (09:19→17:36)
[2021-08-22] MEDS: VENLAFAXINE HCL 75 MG TAB PO SCH (09:19)
[2021-08-22] MEDS: CLOPIDOGREL BISULFATE 75 MG TAB PO SCH (09:20)
[2021-08-22] MEDS: ENOXAPARIN SOD INJ 40 MG/0.4 ML SYR SC SCH ×2 (09:20→21:06)
[2021-08-22] MEDS ORDERED: POTASSIUM CHLORIDE 20 MEQ TAB CR PO ONE (11:45)
[2021-08-22] MEDS ORDERED: METOLAZONE 5 MG TAB PO ONE (20:45)
[2021-08-22] MEDS: SIMVASTATIN 40 MG TAB PO SCH (21:05)
[2021-08-23] VITALS (8 sets, daily range): BP systolic 119–145; BP diastolic 51–76
[2021-08-23] MEDS: FUROSEMIDE INJ 10 MG/ML 4 ML VIAL IV SCH ×3 (00:52→16:31)
[2021-08-23 05:29] LABS: ANION GAP 14.1 mmol/L (8-16); CALCIUM 8.9 mg/dL (8.4-10.2); CREATININE, SERUM 1.18 mg/dL (0.57-1.11); POTASSIUM 4.1 mmol/L (3.5-5.1)
[2021-08-23] MEDS: ASPIRIN 81 MG CHEW TAB PO SCH (08:40)
[2021-08-23] MEDS: CARVEDILOL 3.125 MG TAB PO SCH ×2 (08:41→16:31)
[2021-08-23] MEDS: LOSARTAN POTASSIUM 25 MG TAB PO SCH (08:42)
[2021-08-23] MEDS: VENLAFAXINE HCL 75 MG TAB PO SCH (08:43)
[2021-08-23] MEDS: GABAPENTIN 100 MG CAP PO SCH ×2 (08:44→16:32)
[2021-08-23] MEDS: LEVETIRACETAM 500 MG TAB PO SCH (08:44)
[2021-08-23] MEDS: CLOPIDOGREL BISULFATE 75 MG TAB PO SCH (08:45)
[2021-08-23] MEDS: ENOXAPARIN SOD INJ 40 MG/0.4 ML SYR SC SCH (08:45)
[2021-08-23] MEDS: INSULIN LISPRO 100 UNIT/1 ML 3ML VIAL SQ SCH ×4 (08:48→21:40)
[2021-08-23] MEDS: MUPIROCIN 2% OINT 22 GM TUBE TOP SCH ×2 (09:00→17:00)
[2021-08-23] MEDS ORDERED: METOLAZONE5 MG PO (10:43)
[2021-08-23] MEDS ORDERED: INSULIN REGULAR, HUMAN 100 UNIT/1 ML SQ ONE (16:15)
[2021-08-23] MEDS: NPH, HUMAN INSULIN ISOPHANE 100 UNIT/1 ML 3ML VIAL SQ SCH (16:30)
[2021-08-23 17:08] LABS: CLARITY,URINE SL CLOUDY (CLEAR); COLOR,URINE RED (YELLOW); KETONES,URINE NEGATIVE (NEGATIVE); LEUKOCYTE ESTERASE ,URINE TRACE (NEGATIVE); NITRITE,URINE NEGATIVE (NEGATIVE); PROTEIN,URINE DIPSTICK 2+ (NEGATIVE); URINE UROBILINOGEN 0.2 mg/dL (0.2 - 1)
[2021-08-23 17:27] LABS: BACTERIA,URINE MANY /HPF; RBC,URINE 21-50 /HPF (0-5); WBC,URINE (MAN) 0-5 /HPF (0-5)
[2021-08-23] MEDS: SIMVASTATIN 40 MG TAB PO SCH (21:35)
[2021-08-23] MEDS ORDERED: METOLAZONE 5 MG TAB PO ONE (23:45)
[2021-08-24] VITALS (8 sets, daily range): BP systolic 104–163; BP diastolic 47–67
[2021-08-24] MEDS: FUROSEMIDE INJ 10 MG/ML 4 ML VIAL IV SCH ×3 (00:49→16:47)
[2021-08-24] MEDS: INSULIN LISPRO 100 UNIT/1 ML 3ML VIAL SQ SCH ×4 (07:30→21:34)
[2021-08-24] MEDS: NPH, HUMAN INSULIN ISOPHANE 100 UNIT/1 ML 3ML VIAL SQ SCH ×2 (07:30→16:30)
[2021-08-24] MEDS: VENLAFAXINE HCL 75 MG TAB PO SCH (09:00)
[2021-08-24] MEDS: CARVEDILOL 3.125 MG TAB PO SCH ×2 (09:00→16:48)
[2021-08-24] MEDS: GABAPENTIN 100 MG CAP PO SCH ×2 (09:00→16:48)
[2021-08-24] MEDS: LOSARTAN POTASSIUM 25 MG TAB PO SCH (09:00)
[2021-08-24] MEDS: LEVETIRACETAM 500 MG TAB PO SCH (09:00)
[2021-08-24] MEDS: MUPIROCIN 2% OINT 22 GM TUBE TOP SCH ×2 (10:10→16:47)
[2021-08-24] MEDS ORDERED: PROPOFOL IV EMULSION 10 MG/ML 20 ML VIAL ONE (12:19)
[2021-08-24] MEDS ORDERED: LIDOCAINE HCL 2% LOCAL INJ 5 ML SDV VIAL INJ ONE (12:19)
[2021-08-24] MEDS ORDERED: MIDAZOLAM HCL 2 MG/2 ML VIAL ONE (13:53)
[2021-08-24] MEDS ORDERED: FENTANYL CITRATE/PF 100MCG/2 ML INJ ONE (13:53)
[2021-08-24] MEDS ORDERED: IOPAMIDOL 610MG/1ML 300 MG/ML VIAL IV ONE (17:04)
[2021-08-24] MEDS ORDERED: LIDOCAINE HCL 2% JELLY 5 ML TUBE ONE (17:51)
[2021-08-24] MEDS: SIMVASTATIN 40 MG TAB PO SCH (21:25)
[2021-08-25] VITALS: BP 122/52
[2021-08-25] MEDS: FUROSEMIDE INJ 10 MG/ML 4 ML VIAL IV SCH ×2 (01:42→08:09)
[2021-08-25 04:00] VITALS: BP 113/50
[2021-08-25 05:39] LABS: BASOPHILS % 0.3 % (0.0-1.0); EOSINOPHILS # (AUTO) 0.1 (0.0-0.4); HEMATOCRIT 40.8 % (34.2-44.1); HEMOGLOBIN 12.8 g/dL (12.0-16.0); LYMPHOCYTES % 15.1 % (18.0-39.1); MEAN CORPUSCULAR HEMOGLOBIN 27.7 pg (28-32); MEAN CORPUSCULAR HGB CONC 31.4 g/dL (31-35); MEAN CORPUSCULAR VOLUME 88.3 fL (81-99); MONOCYTES # (AUTO) 0.7 (0.2-0.8); MONOCYTES % 10.4 % (4.4-11.3); NEUTROPHILS # (AUTO) 4.6 (2.1-6.9); PLATELET COUNT 202 x10e3/uL (140-360); RED BLOOD COUNT 4.62 x10e6/uL (3.6-5.1); RED CELL DISTRIBUTION WIDTH 16.8 % (11.7-14.4)
[2021-08-25 06:06] LABS: ALBUMIN 3.1 g/dL (3.5-5.0); ALBUMIN/GLOBULIN RATIO 0.8 (0.8-2.0); ANION GAP 16.7 mmol/L (8-16); CALCIUM 9.3 mg/dL (8.4-10.2); CREATININE, SERUM 0.97 mg/dL (0.57-1.11); MAGNESIUM 1.9 MG/DL (1.3-2.1); POTASSIUM 3.7 mmol/L (3.5-5.1)
[2021-08-25] MEDS: INSULIN LISPRO 100 UNIT/1 ML 3ML VIAL SQ SCH ×2 (07:30→11:30)
[2021-08-25 07:54] VITALS: BP 123/58
[2021-08-25] MEDS: GABAPENTIN 100 MG CAP PO SCH (08:12)
[2021-08-25] MEDS: CARVEDILOL 3.125 MG TAB PO SCH (08:14)
[2021-08-25] MEDS: VENLAFAXINE HCL 75 MG TAB PO SCH (08:15)
[2021-08-25] MEDS: LOSARTAN POTASSIUM 25 MG TAB PO SCH (08:15)
[2021-08-25] MEDS: LEVETIRACETAM 500 MG TAB PO SCH (08:15)
[2021-08-25] MEDS: NPH, HUMAN INSULIN ISOPHANE 100 UNIT/1 ML 3ML VIAL SQ SCH (08:18)
[2021-08-25 09:08] VITALS: BP 123/58
[2021-08-25] MEDS: MUPIROCIN 2% OINT 22 GM TUBE TOP SCH (09:12)
[2021-08-25 11:22] VITALS: BP 127/56
[2021-08-25] MEDS ORDERED: AMOXICILLIN500 MG PO (12:43)
== END 2021-08-25 13:40 | disposition home or self-care (01) | DRG 291 ==
LOC: ER 18:34 → ERHOLD 21:30 → INTOOBSV 21:30 → MED/SURG 22:48 → OBSVTOIN 08-19 10:11
PROVIDERS: ADMIT Internal Medicine; ATTEND Internal Medicine
PROC: BT1D1ZZ Fluoroscopy of Right Kidney, Ureter and Bladder using Low Osmolar Contrast (ICD-10-PCS; 2021-08-24)
PROC: 0TCB8ZZ Extirpation of Matter from Bladder, Via Natural or Artificial Opening Endoscopic (ICD-10-PCS; principal; 2021-08-24 17:38)
DX: I11.0 Hypertensive heart disease with heart failure (principal); I50.23 Acute on chronic systolic (congestive) heart failure; N39.0 Urinary tract infection, site not specified; Z16.12 Extended spectrum beta lactamase (ESBL) resistance; Z68.42 Body mass index [BMI] 45.0-49.9, adult; B96.20 Unspecified Escherichia coli [E. coli] as the cause of diseases classified elsewhere; I25.10 Atherosclerotic heart disease of native coronary artery without angina pectoris; G40.909 Epilepsy, unspecified, not intractable, without status epilepticus; Z86.711 Personal history of pulmonary embolism; E66.01 Morbid (severe) obesity due to excess calories; E11.649 Type 2 diabetes mellitus with hypoglycemia without coma; Z79.899 Other long term (current) drug therapy; Z95.5 Presence of coronary angioplasty implant and graft; R60.0 Localized edema; Z20.822 Contact with and (suspected) exposure to COVID-19
CPT/HCPCS: 36415; 71045; 74018; 74420; 76770; 80048; 80053; 81001; 82550; 82553; 82948; 83735; 83880; 84484; 85025; 87086; 87186; 93005; 93306; 94799; 96372; 97139; 99251; 99284; C1758; G0378; J1650; J1817; J1940; J2001; J2250; J3010; J7799

== ENCOUNTER 2022-01-28 17:08 | Emergency (ER) | payer MEDICARE ==
[~2022-01-28] VITALS: Ht 165.1 cm; Wt 152.9 kg
[~2022-01-28 17:08] MED LIST changes: +AMOXICILLIN500 MG PO; +METOLAZONE5 MG PO
[2022-01-28 17:39] LABS: BASOPHILS % 0.4 % (0.0-1.0); EOSINOPHILS # (AUTO) 0.1 (0.0-0.4); EOSINOPHILS % 1.3 % (0.0-6.0); HEMATOCRIT 41.1 % (34.2-44.1); LYMPHOCYTES # (AUTO) 1.2 (1.0-3.2); LYMPHOCYTES % 16.8 % (18.0-39.1); MEAN CORPUSCULAR HEMOGLOBIN 29.1 pg (28-32); MEAN CORPUSCULAR HGB CONC 31.6 g/dL (31-35); MEAN CORPUSCULAR VOLUME 92.2 fL (81-99); MONOCYTES # (AUTO) 0.7 (0.2-0.8); MONOCYTES % 9.2 % (4.4-11.3); NEUTROPHILS # (AUTO) 5.1 (2.1-6.9); PLATELET COUNT 182 x10e3/uL (140-360); RED BLOOD COUNT 4.46 x10e6/uL (3.6-5.1); RED CELL DISTRIBUTION WIDTH 13.5 % (11.7-14.4)
[2022-01-28 17:57] LABS: ALBUMIN 3.9 g/dL (3.5-5.0); ANION GAP 14.9 mmol/L (8-16); CALCIUM 9.6 mg/dL (8.4-10.2); CREATININE, SERUM 1.11 mg/dL (0.57-1.11); POTASSIUM 3.9 mmol/L (3.5-5.1)
[2022-01-28 18:16] LABS: CREATINE KINASE MB 4.3 ng/mL (0-5.0)
[2022-01-28] MEDS ORDERED: ANTIVERT25 M1 PO (20:32)
[2022-01-28] MEDS ORDERED: ONDANSETRON ODT4 MG PO (20:32)
== END 2022-01-28 21:15 | disposition home or self-care (01) ==
LOC: ER 17:16
DX: R42 Dizziness and giddiness (principal); R60.9 Edema, unspecified; Z20.822 Contact with and (suspected) exposure to COVID-19
CPT/HCPCS: 36415; 51700; 71045; 80053; 82550; 82553; 83880; 84484; 85025; 93005; 99284; U0002

== ENCOUNTER → 2023-11-12 | Outpatient (REF) | payer MEDICARE ==
[~2023-11-12] MED LIST changes: +ACETAMINOPHEN325 M1 PO; +ANTIVERT25 M1 PO; +BUMETANIDE1 MG PO; +CARVEDILOL3.125 MG PO; +COREG12.5 MG PO; +ELIQUIS2.5 MG PO; +ENTRESTO 24 MG1 EACH; +FLUCONAZOLE200 MG PO; +LEVOTHYROXINE50 MC1 PO; +MUPIROCIN22 GM TOP; +NYSTATIN15 G2 TOP; +NYSTATIN15 GM TOP; +ONDANSETRON ODT4 MG PO; +SOLIQUA 100 UNIT3 ML SQ; +ZYVOX600 MG PO
[2023-11-12 12:28] LABS: BASOPHILS % 0.3 % (0.0-1.0); EOSINOPHILS # (AUTO) 0.1 (0.0-0.4); EOSINOPHILS % 2.3 % (0.0-6.0); HEMATOCRIT 29.8 % (34.2-44.1); HEMOGLOBIN 9.1 g/dL (12.0-16.0); LYMPHOCYTES % 16.2 % (18.0-39.1); MEAN CORPUSCULAR HEMOGLOBIN 28.4 pg (28-32); MEAN CORPUSCULAR HGB CONC 30.5 g/dL (31-35); MEAN CORPUSCULAR VOLUME 93.1 fL (81-99); MONOCYTES # (AUTO) 0.6 (0.2-0.8); MONOCYTES % 10.5 % (4.4-11.3); NEUTROPHILS # (AUTO) 4.2 (2.1-6.9); NEUTROPHILS % 70.4 % (38.7-80.0); PLATELET COUNT 201 x10e3/uL (140-360); RED CELL DISTRIBUTION WIDTH 15.4 % (11.7-14.4)
[2023-11-12 12:31] LABS: INR 1.09; PROTHROMBIN TIME 14.7 seconds (11.9-14.5)
[2023-11-12 12:32] LABS: PARTIAL THROMBOPLASTIN TIME 30.9 seconds (23.8-35.5)
[2023-11-12 14:59] LABS: BODY FLUID APPEARANCE SL.CLOUDY; BODY FLUID COLOR YELLOW; BODY FLUID TYPE PLEURAL
[2023-11-12 15:08] LABS: RBC,BODY FLUID 5000 cells/uL; WBC,BODY FLUID 226 cells/uL
[2023-11-12 16:55] LABS: LYMPHOCYTES,BODY FLUID 9 %; MONO/MACROPHG,BODY FLUID 62 %; NEUTROPHILS,BODY FLUID 11 %; OTHER CELLS,BODY FLUID 18 %; TOTAL CELLS COUNTED (DIFF) 100
== END ==
LOC: US 11:07
PROVIDERS: ATTEND Surgery
DX: I50.42 Chronic combined systolic (congestive) and diastolic (congestive) heart failure (principal)
CPT/HCPCS: 32555; 36415; 71045; 85025; 85610; 85730; 87070; 87205; 88112; 88305; 89051